=== PATIENT | male | born 1965 | race African-American/Black ===

== ENCOUNTER 2016-10-07 17:37 | Inpatient (IN) | payer OTHER ==
[~2016-10-07] VITALS: Ht 195.6 cm; Wt 164.9 kg
[2016-10-07 17:37] VITALS: BP 162/94; PULSE 68; RESP 15; TEMP 98.9; O2SAT 98
[~2016-10-07 17:37] MED LIST: ARIP5TAB10 PO; ASPI-1063 PO; CINA90TA PO; GABA-531 PO; INSU100V9 SUBCUT; LAMO200T2 PO; LATA2.5D6 OP; LEVE500T13 PO; LOSA50TA3 PO; METO50TA7 PO; POLY17PO2 PO; RANI300T7 PO; SEVE800T10 PO; SIMV20TA2 PO; SSNOVOLOG SUBCUT
--- NOTE | 2016-10-07 17:37 | NUR ---
Patient to ER bed 5 to gown for evaluation. Side rails up. Report given to CLIVE Tony.
--- NOTE | 2016-10-07 17:45 | NUR ---
Patient brought in by ambulance, per medic patient was at home with caregiver and was complaining of unexplained right leg pain (area unknown) and caregiver felt that patient was altered. Patient had 1.5 minute seizure with medics at time of arrival, post seizure patient lethargic, moving eyes around with non comprehensible slurred speech. Pin point pupils noted per medics at at this time. Unable to obtain any further information. No injury/deformites noted. Bilateral lower extremity edema noted. No other complaints/injuries per patient or noted at this time. Addendum: 10/07/16 at 1937 by JOSÉ MIGUEL No deformites/bruising/injury noted to body
--- NOTE | 2016-10-07 17:46 | NUR ---
Dr. Skaggs at bedside
--- NOTE | 2016-10-07 17:48 | NUR ---
Full seizure precautions in place, padded side rails.
--- NOTE | 2016-10-07 17:48 | NUR ---
Patient placed on 02 2L per MD order. 02 sat 100%
[2016-10-07] MEDS ORDERED: LORazepam 2 MG/ML VIAL (FOR ER USE) ONE (17:49)
[2016-10-07] MEDS ORDERED: LORazepam 2 MG/ML VIAL (FOR ER USE) IVP ONE (18:00)
--- NOTE | 2016-10-07 18:00 | NUR ---
Patient's speech is more comprehensible, alert to name. Patient still unable to state why he is here.
--- NOTE | 2016-10-07 18:15 | NUR ---
Eckert catheter with use of sterile technique placed. Immediate return of 50 cc clear yellow urine noted. Bedside drainage bag placed below level of bladder. Urine sample collected and sent to lab. Pt tolerated procedure well.
--- NOTE | 2016-10-07 18:40 | NUR ---
Unable to establish IV access after multiple attempts. US guided 18G IV placed to right brachial vein.
[2016-10-07 18:47] LABS: BASOPHILS # (AUTO) 0.1 K/uL (0.0-0.2); EOSINOPHILS # (AUTO) 0.2 K/uL (0.0-0.4); HEMOGLOBIN 8.9 g/dL (14.0-18.0); MEAN CORPUSCULAR HEMOGLOBIN 34 pg (27-31); MEAN CORPUSCULAR HGB CONC 33 % (32-36); MONOCYTES # (AUTO) 0.7 K/uL (0.0-1.0)
[2016-10-07 18:51] LABS: BASOPHILS % (AUTO) 1.8 % (0.0-2.0); EOSINOPHILS % (AUTO) 3.7 % (0.0-4.0); HEMATOCRIT 27.2 % (36-54); LYMPHOCYTES % (AUTO) 17.2 % (20.5-51.5); MEAN CORPUSCULAR VOLUME 102 fL (79.0-98.0); MONOCYTES % (AUTO) 11.5 % (1.7-9.3); NEUTROPHILS # (AUTO) 3.8 K/uL (1.8-7.7); NEUTROPHILS % (AUTO) 65.8 % (40.0-70.0); PLATELET COUNT (AUTO) 185 K/uL (130-430); RED BLOOD CELL COUNT(AUTO) 2.66 MIL/uL (4.2-6.2); RED CELL DISTRIBUTION WIDTH 15.7 % (9.0-15.0); WHITE BLOOD COUNT (AUTO) 5.8 K/uL (4.8-10.8)
[2016-10-07 18:54] LABS: BILIRUBIN,URINE NEGATIVE (NEGATIVE); BLOOD, URINE 3+ (NEGATIVE); CLARITY/URINE SL CLOUDY (CLEAR); COLOR,URINE YELLOW (YELLOW); GLUCOSE,URINE NEGATIVE (NEGATIVE); KETONES,URINE NEGATIVE (NEGATIVE); LEUKOCYTE ESTERASE ,URINE 1+ (NEGATIVE); NITRITE, URINE NEGATIVE (NEGATIVE); PROTEIN URINE 2+ (NEGATIVE); UROBILINOGEN,URINE 0.2 (0.2-1.0)
[2016-10-07 18:59] LABS: CALCIUM 9.7 mg/dL (8.4-11.0); POTASSIUM 4.7 mmol/L (3.5-5.1)
[2016-10-07 19:05] LABS: CREATININE 11.97 mg/dL (0.55-1.30)
[2016-10-07 19:08] LABS: TOTAL BILIRUBIN 0.6 mg/dL (0.0-1.0)
[2016-10-07 19:09] LABS: TOTAL PROTEIN, SERUM 7.4 g/dL (6.4-8.3)
[2016-10-07 19:09] LABS: BARBITURATE, URINE NEGATIVE (NEG <=200); BENZODIAZEPINE, URINE NEGATIVE (NEG <=150); CANNABINOID, URINE NEGATIVE (NEG <=50); COCAINE, URINE NEGATIVE (NEG <=150); METHAMPHETAMINES SCREEN,URINE NEGATIVE (NEG <=500); OPIATE, URINE POSITIVE (NEG <=100); PHENCYCLIDINE SCREEN,URINE NEGATIVE (NEG <=25); UR TRICYCLIC ANTIDEPRESSANTS NEGATIVE (NEG <=300); URINE AMPHETAMINE NEGATIVE (NEG <=500); URINE METHADONE NEGATIVE (NEG <=200); URINE OXYCODONE SCREEN NEGATIVE (NEG <=100); URINE PROPOXYPHENE SCREEN NEGATIVE (NEG <=300)
[2016-10-07 19:13] LABS: BACTERIA,URINE FEW /HPF (None Seen); RBC,URINE 20-50 /HPF (0-3)
[2016-10-07] MEDS ORDERED: cefTRIAXone 1 GM IVPB PREMIX 50 ML IV ONE (19:45)
[2016-10-07 19:46] LABS: MUCUS,URINE None Seen /LPF (None Seen)
[2016-10-07] MEDS: SEVELAMER HCL 800 MG TABLET PO SCH (21:00)
[2016-10-07] MEDS: GABAPENTIN 300 MG CAPSULE PO SCH (21:00)
[2016-10-07] MEDS: POLYETHYLENE GLYCOL 3350, 17 GM/ POWD.PACK PO SCH (21:00)
[2016-10-07] MEDS: LATANOPROST 2.5 ML DROPS (XALATAN) OP SCH (21:00)
[2016-10-07] MEDS: SIMVASTATIN 20 MG TABLET PO SCH (21:00)
[2016-10-07] MEDS: LamoTRIgine 100 MG TABLET PO SCH (21:00)
[2016-10-07] MEDS: levETIRAcetam 500 MG TABLET PO SCH (21:00)
[2016-10-07] MEDS ORDERED: LORazepam 2 MG/ML VIAL IVP PRN (21:15)
[2016-10-07] MEDS ORDERED: DEXTROSE 50% JECT 50 ML DISP.SYRIN IVP PRN (21:15)
--- NOTE | 2016-10-07 21:35 | NUR ---
ADMISSION NOTE Received patient from ER via gurney. Patient admitted with diagnosis of ALOC, SEIZURE. Patient is awake, alert, oriented X 2. Patient oriented to hospital room, call light, toileting, pain management and safety-teach back done. Patient informed that PHILL will be HIS nurse and that their room number is [131A]. Personal belongings checked and Belongings List documented. Call light within reach.
--- NOTE | 2016-10-07 21:36 | NUR ---
Patient will be admitted to care of Dr. Chakraborty. Admitted to tele unit. Will go to room 131-a. Belongings list completed. Summary report printed. Report given to CLIVE Seaman.
[2016-10-07 21:45] VITALS: BP 165/92; PULSE 63; RESP 18; RESP 20; TEMP 97.4; O2SAT 100
[2016-10-07] MEDS: D5NS 1,000 ML IV SCH (22:00)
[2016-10-07] MEDS: INSULIN REGULAR, HUMAN 100 UNITS/ML, 10 ML VIAL (novoLIN R) SUBCUT PRN (23:43)
--- NOTE | 2016-10-07 23:51 | NUR ---
ACCUCHECK/PAIN Pt.'s blood sugar 173; 2 units of Regular insulin administered per sliding scale order. Pt. c/o "04/20" pain to right leg. Will page to report.
[2016-10-08 01:02] VITALS: BP 169/98; PULSE 60; RESP 18; TEMP 98; O2SAT 96
[2016-10-08 01:29] VITALS: BP 170/99
--- NOTE | 2016-10-08 01:30 | NUR ---
SPOKE TO DR. GUERRA Spoke to Dr. Guerra regarding pt.'s blood pressure of 170/99 (previously 169/98) and that his current diet order is nothing by mouth with c/o "9/10" pain to right leg. Dr. Guerra ordered Morphine 1mg IVP every 4 hours as needed for severe (7-10) pain. Will carry out.
[2016-10-08] MEDS: MORPHINE 2 MG/ML INJ. SYRINGE IVP PRN (02:17)
--- NOTE | 2016-10-08 02:17 | NUR ---
PAIN late entry due to pt. care. Pt. was medicated for pain by Nancy Multani RN. Please see EMAR.
--- NOTE | 2016-10-08 04:00 | NUR ---
ROUNDS Late entry due to pt. care. Pt. is resting quietly in bed with eyes closed. No s/s of acute distress. Safety measures in place. Call light on lap. Bed alarm on. Will continue to monitor.
[2016-10-08 05:12] VITALS: BP 161/86; PULSE 61; RESP 17; TEMP 97.6; O2SAT 98
--- NOTE | 2016-10-08 06:36 | NUR ---
CLOSING NOTES Pt. is resting quietly in bed with no s/s of acute distress. No s/s of seizure activity throughout shift. Safety and seizure measures continued to be in place throughout shift. No significant changes. Will endorse care to oncoming day shift nurse.
--- NOTE | 2016-10-08 07:15 | NUR ---
SEIZURE ACTIVITY Late entry due to pt. care. Pt. had 30 second seizure activity during shift change/report. Day shift nurse and student nurse also at bedside. Endorsed to day shift nurse to report to . Addendum: 10/08/16 at 0750 by Urszula Montalvo RN SEIZURE ACTIVITY Late entry due to pt. care. Pt. had 30 second seizure activity during shift change/report. Pt. pupils are reactive to light. Pt. does not appear to be in any s/s of any other distress. Day shift nurse and student nurse also at bedside. Endorsed to day shift nurse to report to
[2016-10-08 07:59] VITALS: BP 158/96; PULSE 60; RESP 16; TEMP 98; O2SAT 98
--- NOTE | 2016-10-08 08:00 | NUR ---
NOTE PT SITTING UP IN BED. NO SOB/RESP DISTRESS OR PAIN/DISCOMFORT WAS NOTED AT THIS TIME. IV IN JOSÉ MIGUEL INTACT AND PATENT AT THIS TIME. TELE UNIT ATTACHED AND TRANSMITTING WELL. BILL AV SHUNT INTACT WITH BRUIT AND THRILL PRESENT AT THIS TIME. NO NEEDS NOTED. CALL LIGHT WITHIN REACH.
[2016-10-08] MEDS: LamoTRIgine 100 MG TABLET PO SCH ×2 (08:50→21:48)
[2016-10-08] MEDS: ARIPiprazole 5 MG TAB PO SCH (08:50)
[2016-10-08] MEDS: CINACALCET HCL 30 MG TABLET PO SCH (08:50)
[2016-10-08] MEDS: SEVELAMER HCL 800 MG TABLET PO SCH ×3 (08:50→21:48)
[2016-10-08] MEDS: METOPROLOL SUCCINATE 50 MG TAB.SR.24H (TOPROL XL) PO SCH (08:51)
[2016-10-08] MEDS: GABAPENTIN 300 MG CAPSULE PO SCH ×2 (08:51→21:49)
[2016-10-08] MEDS: ASPIRIN 81 MG TABLET(ECOTRIN) PO SCH (08:51)
[2016-10-08] MEDS: LOSARTAN POTASSIUM 50 MG TABLET (COZAAR) PO SCH (08:51)
[2016-10-08] MEDS: levETIRAcetam 500 MG TABLET PO SCH ×2 (08:51→21:49)
--- NOTE | 2016-10-08 08:54 | NUR ---
Consult: for Dr. Rosado, regarding ESRD, ordered by Dr. Chakraborty, spoke with Sloane.
--- NOTE | 2016-10-08 08:55 | NUR ---
Nephro Consult: for Dr. Montejo, regarding ESRD, ordered by Dr. Chakraborty, spoke with Rupal.
--- NOTE | 2016-10-08 09:00 | NUR ---
NOTE DR GUERRA WAS ON THE FLOOR AT 0835AM. ORDERS FOR CLEAR LIQUID DIET AND CONSULTS FOR DR NEVAREZ AND DR PLEITEZ GIVEN. PT NOTIFIED AND UPDATED ON NEW ORDERS. PT WAS ASSISTED IN TAKING PO MEDICATIONS I AT A TIME. TOLERATED CLEAR LIQUIDS DIET WELL AT THIS TIME. CALL LIGHT WITHIN REACH.
--- NOTE | 2016-10-08 09:07 | NUR ---
Nutrition Update Berhane Scale 16 noted. Pt admitted for ALOC. Diet: clear liquid BMI: 41.5 kg/m2 RD to follow per nutrition care standards.
--- NOTE | 2016-10-08 11:00 | NUR ---
NOTE INSIDE SALES PERSON CALLED AND STATED SHE WILL BE IN TO DO DIALYSIS AROUND 1300. CONSENT FOR DIALYSIS SIGNED BY PT AND IN THE CHART AT THIS TIME. PT DROWSY AND SLEEPY AT THIS TIME. NO NEEDS NOTED. CALL LIGHT WITHIN REACH.
[2016-10-08 11:27] VITALS: BP 161/77; PULSE 58; RESP 19; TEMP 97.4; O2SAT 98
--- NOTE | 2016-10-08 12:45 | NUR ---
NOTE PT WAS ASSISTED IN EATING HIS LUNCH TRAY BY SILO MAN AT THIS TIME. NO SOB/RESP DISTRESS OR PAIN/DISCOMFORT NOTED AT THIS TIME. CALL LIGHT WITHIN REACH. NO NEEDS NOTED AT THIS TIME.
[2016-10-08] MEDS: INSULIN REGULAR, HUMAN 100 UNITS/ML, 10 ML VIAL (novoLIN R) SUBCUT PRN (16:47)
[2016-10-08] MEDS: D5NS 1,000 ML IV SCH (16:54)
--- NOTE | 2016-10-08 17:00 | NUR ---
NOTE PT STARTED DIALYSIS AT 1330 AND ENDED AT 1700. PT TOLERATED DIALYSIS WELL. NO NEEDS NOTED AT THIS TIME. CALL LIGHT WITHIN REACH.
--- NOTE | 2016-10-08 18:13 | NUR ---
PAGED PAGED TIFFANY LION AT [phone] SPOKE WITH LUIZ.
[2016-10-08] MEDS ORDERED: *HEPARIN PER PHARMACY XX ONE (18:30)
--- NOTE | 2016-10-08 18:35 | NUR ---
NOTE PT'S COAL OR ORE CONTROLLER VAZQUEZ CALLED AT 1650 AND UPDATE ON PT'S STATUS WAS GIVEN. DR GUERRA WAS NOTIFIED AT 0835AM OF PT'S EPISODE OF SEIZURE AT 0715AM, WITNESSED BY KALYAN RN, PHILL RN(NOC) AND STUDENT RN (DINH). PT RESTING IN BED AT THIS TIME. NO NEEDS NOTED. NO SOB/RESP DISTRESS OR PAIN/DISCOMFORT OR ANY OTHER SEIZURE ACTIVITY NOTED ON REST OF SHIFT. TELE UNIT IN PLACE ALL SHIFT. PT WAS CHECKED ON Q1' AND PRN FOR NEEDS AND CARE. CALL LIGHT WITHIN REACH.
--- NOTE | 2016-10-08 18:43 | NUR ---
NOTE DR GUERRA WAS CALLED AT 1825 WITH RESULTS OF PT'S US VENOUS DOPPLER OF LOWER EXTREMITIES. LEFT LEG WAS (+) FOR DVT. HEPARIN DRIP PER PHARMACY WAS ORDERED AT THIS TIME.
--- NOTE | 2016-10-08 19:35 | NUR ---
OPENING NOTE Pt. and report received from day shift nurse. Pt. is resting quietly in bed with no s/s of acute distress. Respirations are even and unlabored on room air with visible chest rise and fall. IV fluids infusing as ordered. Eckert catheter is intact secured and draining urine by gravity. Plan of care discussed. Safety and seizure measures in place. Educated pt. on safety and how to use call light for needs. Bed alarm on. Will continue to monitor.
--- NOTE | 2016-10-08 19:59 | NUR ---
LAB UNABLE TO OBTAIN PTT LABS/PAGING DR. GUERRA 3 phlebotomists attempted but are unable to obtain pt.'s blood sample for PTT labwork. Evelyn also at nurse's station to report he is unable to dose Heparin drip without pt.'s baseline PTT. Paging Dr. Guerra to report.
[2016-10-08 20:00] VITALS: BP 156/76; PULSE 60; RESP 18; TEMP 97.7; O2SAT 100
--- NOTE | 2016-10-08 20:00 | NUR ---
PAGED PAGED TIFFANY LION AT [phone] SPOKE WITH LUIZ.
--- NOTE | 2016-10-08 20:07 | NUR ---
CONSULTATION PAGED REASON FOR CONSULTATION:CENTRAL LINE PLACEMENT WAS CONSULT CALLED?Y PERSON WHO WAS NOTIFIED:LUIZ CONSULTING PHYSICIAN:VICKY MENG PAD MACHINE FEEDER SPECIALTY:SURGEON PAD MACHINE FEEDER PHONE NUMBER:[phone]
--- NOTE | 2016-10-08 20:14 | NUR ---
DR. QIU MAKING ROUNDS Dr. Qiu is here for neuro consult and saw patient.
--- NOTE | 2016-10-08 20:36 | NUR ---
DR. MCCARTHY Spoke and reported to Dr. Mccarthy he was ordered as a stat consult for central line placement for pt. due to inability to obtain blood sample for PTT for heparin drip to be started tonight for positive DVT result/tx per Dr. Chakraborty. Dr. Mccarthy to see patient tonight and gave orders to prepare central line equipment.
[2016-10-08] MEDS ORDERED: HEPARIN SODIUM,PORCINE 2000 UNITS/0.4 ML BOLUS IVP PRN (20:45)
[2016-10-08] MEDS ORDERED: HEPARIN SODIUM,PORCINE 3000 UNITS/0.6 ML BOLUS IVP PRN (20:45)
--- NOTE | 2016-10-08 20:47 | NUR ---
CENTRAL LINE INFORMED CONSENT Late entry due to pt. care. Dr. Mccarthy at bedside explaining central line procedure with pt. and caregiver Jacob at bedside. Pt. denies any questions or concerns at this time. Form was signed. Placed in chart.
[2016-10-08] MEDS: LATANOPROST 2.5 ML DROPS (XALATAN) OP SCH (21:00)
[2016-10-08] MEDS ORDERED: HEPARIN SODIUM,PORCINE 5000 UNITS/ML VIAL IV ONE (21:00)
[2016-10-08] MEDS ORDERED: HEPARIN SODIUM,PORCINE 5000 UNITS/ML VIAL IVP ONE (21:00)
--- NOTE | 2016-10-08 21:00 | NUR ---
CENTRAL LINE PLACEMENT Late entry due to pt. care. Dr. Mccarthy at bedside doing central line procedure. Time out at 2100. Central line to right femoral with three ports. 5,[address] Mccarthy. Pt. tolerated well. Procedure was complete at 2147pm.
[2016-10-08] MEDS: SIMVASTATIN 20 MG TABLET PO SCH (21:48)
[2016-10-08] MEDS: POLYETHYLENE GLYCOL 3350, 17 GM/ POWD.PACK PO SCH (21:49)
[2016-10-08] MEDS: cefTRIAXone 1 GM IVPB PREMIX 50 ML IV SCH (21:49)
--- NOTE | 2016-10-08 22:30 | NUR ---
DUE MEDS Due meds administered as ordered. Pt. tolerated well. Educated pt. regarding medication and s/e. Caregiver Jacob at bedside who is also aware of pt.'s medications.
[2016-10-08] MEDS: HEPARIN 25,000 UNITS in 250 ML PREMIX IV PRN (22:55)
--- NOTE | 2016-10-08 22:55 | NUR ---
PTT/HEPARIN DRIP Late entry due to pt. care. Pt.'s PTT 29.4; Heparin bolus given and infusing as ordered.
[2016-10-09] VITALS: BP 147/85; PULSE 61; RESP 18; TEMP 97.2; O2SAT 96
[2016-10-09] MEDS: LATANOPROST 2.5 ML DROPS (XALATAN) OP SCH ×2 (01:16→20:57)
--- NOTE | 2016-10-09 01:24 | NUR ---
ACCUCHECK Blood sugar 95; no insulin was administered per sliding scale order. Encouraged pt. to take a snack.
--- NOTE | 2016-10-09 02:00 | NUR ---
ROUNDS Late entry due to pt. care. Pt. is resting quietly in bed with eyes closed. Respirations are even and unlabored with visible chest rise and fall. No s/s of acute distress. Safety measures in place. Call light on lap. Will continue to monitor.
--- NOTE | 2016-10-09 04:38 | NUR ---
ROUNDS CARBURETOR EXPERT at bedside. Pt. is awake, resting quietly in bed with no s/s of acute distress. Safety and seizure measures in place. bed alarm on. Call light on lap. Will continue to monitor.
[2016-10-09] MEDS: MORPHINE 2 MG/ML INJ. SYRINGE IVP PRN ×3 (04:54→20:54)
--- NOTE | 2016-10-09 04:54 | NUR ---
PAIN Late entry due to pt. care. Pt. c/o severe pain to right leg. Pt. medicated with Morphine IVP as ordered PRN for severe pain. See eMAR. Educated pt. regarding med and s/e. Pt. verbalized understanding. Safety and seizure measures in place with no s/s of seizure activity at this time. Will continue to monitor.
[2016-10-09 05:09] VITALS: BP 169/78; PULSE 68; RESP 19; TEMP 98.5; O2SAT 100
--- NOTE | 2016-10-09 05:30 | NUR ---
HEPARIN DRIP Late entry due to pt. care. Lab called who stated pt.'s PTT is 62.1; Heparin infusing per protocol. PTT to be drawn in the morning.
--- NOTE | 2016-10-09 05:39 | NUR ---
BLOOD SUGAR 56, 139
--- NOTE | 2016-10-09 05:40 | NUR ---
CENTRAL LINE DRESSING CHANGE Late entry due to pt. care. Blood noted to central line dressing. Central line dressing was changed with assistance of Angela Poole RN.
--- NOTE | 2016-10-09 05:55 | NUR ---
PAGED PAGED TIFFANY LION AT [phone] SPOKE WITH BENJI.
--- NOTE | 2016-10-09 05:58 | NUR ---
SPOKE TO DR. GUERRA Reported pt.'s blood sugar of [address] Guerra; reported it was rechecked after juice was given and it was 139. Dr. Guerra ordered to administer 1 amp of D50 syringe. Will carry out.
[2016-10-09] MEDS: HEPARIN 25,000 UNITS in 250 ML PREMIX IV PRN ×2 (06:24→15:20)
--- NOTE | 2016-10-09 07:56 | NUR ---
CLOSING NOTES Report given to day shift nurses. Pt. is stable with no s/s of acute distress. Heparin infusing per protocol. PTT to be rechecked in the morning. Safety and seizure measures in place with no s/s seizure activity at this time. Endorsed care to day shift nurses.
[2016-10-09 08:00] VITALS: BP 162/96; PULSE 60; RESP 16; TEMP 97.2; O2SAT 97
--- NOTE | 2016-10-09 08:10 | NUR ---
AM ROUNDS Received patient from life science research assistant nurse, patient is alert and oriented x 3. Patient is stable, vital signs stable, patient does not complain of pain at this moment. No signs of respiratory distress. Patient assessed, skin intact, patient's. Patient is edematous in the bilateral legs non-pitting. Instructed patient to use call wooten if assistance is needed. Also educated patient on fall precaution. Patient's bed is in the lowest position, three side rails up, padded side rails, fall precautions in place, seizure precautions in place. Will continue to check and monitor patient.
[2016-10-09] MEDS: LOSARTAN POTASSIUM 50 MG TABLET (COZAAR) PO SCH (09:20)
--- NOTE | 2016-10-09 09:20 | NUR ---
MEDICATIONS Medications given to patient; educated patient on potential side effects of medication. Patient verbalized understanding. Fall precaution in place, Seizure precaution in place. Will continue to monitor patient.
[2016-10-09] MEDS: LamoTRIgine 100 MG TABLET PO SCH ×2 (09:21→20:59)
[2016-10-09] MEDS: ASPIRIN 81 MG TABLET(ECOTRIN) PO SCH (09:21)
[2016-10-09] MEDS: ARIPiprazole 5 MG TAB PO SCH (09:21)
[2016-10-09] MEDS: levETIRAcetam 500 MG TABLET PO SCH ×2 (09:22→23:25)
[2016-10-09] MEDS: GABAPENTIN 300 MG CAPSULE PO SCH ×2 (09:22→20:59)
[2016-10-09] MEDS: SEVELAMER HCL 800 MG TABLET PO SCH ×3 (09:23→20:59)
[2016-10-09] MEDS: METOPROLOL SUCCINATE 50 MG TAB.SR.24H (TOPROL XL) PO SCH (09:23)
[2016-10-09] MEDS: CINACALCET HCL 30 MG TABLET PO SCH (09:24)
--- NOTE | 2016-10-09 09:30 | NUR ---
RN ROUNDS Patient currently sitting up in bed, no signs of distress, patient currently states he is not in any pain. Informed patient to use call wooten if anything is needed. Patient verbalized understanding. Patient's bed in lowest position, three side rails up, fall precautions in place, seizure precaution in place. Will continue to monitor and check on patient.
--- NOTE | 2016-10-09 11:40 | NUR ---
RN ROUNDS Patient is currently resting in bed, watching TV. No complaints of pain, no signs of distress. Patient's bed is currently in lowest position, three side rails up, fall precautions and seizure precautions in place.
--- NOTE | 2016-10-09 11:44 | NUR ---
CONSULTATION: REASON FOR CONSULT: DVT CONSULTING PHYSICIAN: RAJIV PEÑA MD ORDERED BY: TIFFANY GUERRA MD SPOKE WITH JUANY
[2016-10-09 11:47] VITALS: BP 145/70; PULSE 65; RESP 16; TEMP 97.1; O2SAT 99
[2016-10-09 12:17] LABS: HEPATITIS A AB, IgM Negative (Negative); HEPATITIS B CORE AB, IgM Negative (Negative); HEPATITIS B SURFACE AG Negative (Negative)
--- NOTE | 2016-10-09 14:00 | NUR ---
RN Rounds Patient is currently resting in bed watching TV. No complaints of pain at this time. Tele-monitor box battery changed. Patient's bed is in lowest position, three side rails up, fall precautions in place, Seizure precautions in place. Will continue to monitor patient.
--- NOTE | 2016-10-09 16:30 | NUR ---
RN ROUNDS Patient is currently sleeping; no signs of distress noted. Will continue to monitor patient.
[2016-10-09 16:44] VITALS: BP 138/88; PULSE 59; RESP 18; TEMP 98.8; O2SAT 97
[2016-10-09 18:07] VITALS: Ht 195.6 cm; Wt 164.9 kg
--- NOTE | 2016-10-09 18:30 | NUR ---
CLOSING NOTE Will endorse patient to urologic surgeon nurse. Will endorse to urologic surgeon nurse that patient is requesting for change of diet, if this can be followed up with Primary Doctor. Patient is currently lying down in bed watching tv. No signs of distress, no complaints of pain at this time. Bed in lowest position, three side rails up, fall precautions in place, seizure precautions in place. All need mets
[2016-10-09 19:36] LABS: BASOPHILS % (AUTO) 0.9 % (0.0-2.0); EOSINOPHILS # (AUTO) 0.3 K/uL (0.0-0.4); EOSINOPHILS % (AUTO) 5.1 % (0.0-4.0); HEMATOCRIT 26.1 % (36-54); HEMOGLOBIN 8.6 g/dL (14.0-18.0); LYMPHOCYTES # (AUTO) 1.2 K/uL (1.0-5.5); LYMPHOCYTES % (AUTO) 24.7 % (20.5-51.5); MEAN CORPUSCULAR HEMOGLOBIN 34 pg (27-31); MEAN CORPUSCULAR HGB CONC 33 % (32-36); MEAN CORPUSCULAR VOLUME 103 fL (79.0-98.0); MONOCYTES # (AUTO) 0.6 K/uL (0.0-1.0); MONOCYTES % (AUTO) 11.1 % (1.7-9.3); NEUTROPHILS # (AUTO) 2.9 K/uL (1.8-7.7); NEUTROPHILS % (AUTO) 58.2 % (40.0-70.0); PLATELET COUNT (AUTO) 192 K/uL (130-430); RED BLOOD CELL COUNT(AUTO) 2.55 MIL/uL (4.2-6.2); RED CELL DISTRIBUTION WIDTH 15.6 % (9.0-15.0)
[2016-10-09 20:10] VITALS: BP 158/99; PULSE 60; RESP 20; TEMP 97.8; O2SAT 92
--- NOTE | 2016-10-09 20:10 | NUR ---
OPENING ASSESSMENT PATIENT ALERT/ORIENTED X3. HAS BLEEDING FROM RT. GROIN FEMORAL AREA. AWARE. DAY NURSE APPLIED 0.9NS TO AREA FOR DIRECT PRESSURE. HAS HEPARIN DRIP 15ML/HR. TO RT GROIN. ALL THREE LUMENS ARE PATENT. DRESSING HAS BLOOD ON IT CURRENTLY. ON O2 2L N/C. O2 SAT IS 92%. NO SOB NOTED @ THIS TIME. HAS BILATERAL LOWER EXTREMITIES 4+ EDEMA. CALL LIGHT WITHIN EASY ACCESS. EDUCATED PATIENT TO CALL NURSE FOR ALL NEEDS AND NOT TO GET OUT OF BED. SIDE RAILS UPX3. BED IN LOW POSITION. BED ALARM ON.
--- NOTE | 2016-10-09 20:55 | NUR ---
PAIN ASSESSMENT MORPHINE 1MG IVP FOR C/O RT. GROIN PAIN 04/20.
[2016-10-09] MEDS: cefTRIAXone 1 GM IVPB PREMIX 50 ML IV SCH (20:57)
[2016-10-09] MEDS: POLYETHYLENE GLYCOL 3350, 17 GM/ POWD.PACK PO SCH (20:58)
[2016-10-09] MEDS: SIMVASTATIN 20 MG TABLET PO SCH (20:59)
--- NOTE | 2016-10-09 22:15 | NUR ---
ROUNDS PATIENT ASLEEP. RESPIRATORY RATE IS 16. CONTINUES ON O2 2L N/C. NO DISTRESS NOTED @ THIS TIME.
--- NOTE | 2016-10-09 22:30 | NUR ---
DR.SINGH JOHNSON. AWARE [facility] 1924 HGB-8.6 AND HCT-26.3.
[2016-10-09] MEDS: INSULIN REGULAR, HUMAN 100 UNITS/ML, 10 ML VIAL (novoLIN R) SUBCUT PRN (23:45)
--- NOTE | 2016-10-10 00:10 | NUR ---
NOTES PATIENT RESTING QUIETLY WITHOUT DISTRESS @ THIS TIME.
[2016-10-10 00:41] VITALS: BP 152/81; PULSE 56; RESP 16; TEMP 98.4; O2SAT 97
[2016-10-10] MEDS: MORPHINE 2 MG/ML INJ. SYRINGE IVP PRN ×3 (03:12→21:22)
[2016-10-10 04:48] VITALS: BP 148/86; PULSE 62; RESP 17; TEMP 98.2; O2SAT 98
--- NOTE | 2016-10-10 06:10 | NUR ---
SEIZURE SEIZURE LASTING APPROXIMATELY 4 MINUTES. TONIC CLONIC. ATIVAN 1MG IVP GIVEN. TEMP. 97. HR 100. OB=768/81, RESPIRATION 18.
[2016-10-10] MEDS: LORazepam 2 MG/ML VIAL IVP PRN (06:15)
--- NOTE | 2016-10-10 06:15 | NUR ---
NOTE PT. AWAKE DROWSY. TALKING. NO DISTRESS NOTED @ THIS TIME.
--- NOTE | 2016-10-10 06:30 | NUR ---
DR. RIVAS NOTIFIED PATIENT HAD 4 MINUTE SEIZURE. VERBALIZING NOW. DROWSY. POST SEIZURE. ORDERED DR. THAYER NEUROLOGY CONSULT.
--- NOTE | 2016-10-10 06:35 | NUR ---
CLOSING NOTES PT. DROWSY. RT. THIGH FEMORAL CENTRAL LINE DRESSING CHANGED. HAS HEPARIN DRIP 15ML/HR. ON O2 2L N/C. CONTINUES WITH EDEMA RT. LOWER EXTREMITY GREATER THAN LEFT. EDUCATED PATIENT TO CALL NURSE FOR ALL NEEDS.CALL LIGHT WITHIN EASY ACCESS. SEIZURE PADS ON.
--- NOTE | 2016-10-10 07:07 | NUR ---
Neuro consult: for Dr. Agudelo, regarding seizure, ordered by Dr. Galeas, spoke with Catie.
--- NOTE | 2016-10-10 07:30 | NUR ---
AM ROUNDS: REPORT GIVEN AT BEDSIDE BY JESSI NIGHT NURSE. PATIENT SLEEPING. ON PADDED SIDE RAILS NOTED.WITH HEPARIN DRIP RUNNING AT 15CC/H PER PROTOCOL. WAITING FOR PTT RESULTS,STILL PENDING.WITH FEMORAL CENTRAL LINE X3 PORTS,IN PLACED.NO ACTIVE BLEEDING NOTED. ON O2 2L/NC,GOOD SATURATION. WITH VALENCIA DRAINING TO YELLOW URINE. PT AROUSABLE,IV ATIVAN WAS JUST GIVEN BY NIGHT NURSE DUE TO SEIZURE EPISODE.CALM THIS TIME. CALL LIGHT WITH IN REACH. BED ALARM ON.CONTINUE TO MONITOR.
[2016-10-10 07:52] LABS: BASOPHILS % (AUTO) 0.9 % (0.0-2.0); EOSINOPHILS # (AUTO) 0.3 K/uL (0.0-0.4); EOSINOPHILS % (AUTO) 6.2 % (0.0-4.0); HEMATOCRIT 27.1 % (36-54); HEMOGLOBIN 8.9 g/dL (14.0-18.0); LYMPHOCYTES # (AUTO) 1.3 K/uL (1.0-5.5); LYMPHOCYTES % (AUTO) 30.4 % (20.5-51.5); MEAN CORPUSCULAR HEMOGLOBIN 34 pg (27-31); MEAN CORPUSCULAR HGB CONC 33 % (32-36); MEAN CORPUSCULAR VOLUME 104 fL (79.0-98.0); MONOCYTES # (AUTO) 0.6 K/uL (0.0-1.0); MONOCYTES % (AUTO) 13.7 % (1.7-9.3); NEUTROPHILS # (AUTO) 2.1 K/uL (1.8-7.7); NEUTROPHILS % (AUTO) 48.8 % (40.0-70.0); PLATELET COUNT (AUTO) 186 K/uL (130-430); RED CELL DISTRIBUTION WIDTH 15.5 % (9.0-15.0); WHITE BLOOD COUNT (AUTO) 4.3 K/uL (4.8-10.8)
[2016-10-10 08:28] LABS: CALCIUM 9.4 mg/dL (8.4-11.0); POTASSIUM 4.4 mmol/L (3.5-5.1)
[2016-10-10 08:51] LABS: CREATININE 11.65 mg/dL (0.55-1.30)
[2016-10-10 09:13] VITALS: BP 156/93; PULSE 60; RESP 18; TEMP 97.1; O2SAT 98
[2016-10-10] MEDS: LamoTRIgine 100 MG TABLET PO SCH ×2 (09:25→21:07)
[2016-10-10] MEDS: ASPIRIN 81 MG TABLET(ECOTRIN) PO SCH (09:25)
[2016-10-10] MEDS: GABAPENTIN 300 MG CAPSULE PO SCH ×2 (09:25→21:07)
[2016-10-10] MEDS: levETIRAcetam 500 MG TABLET PO SCH ×2 (09:25→21:08)
[2016-10-10] MEDS: ARIPiprazole 5 MG TAB PO SCH (09:26)
[2016-10-10] MEDS: CINACALCET HCL 30 MG TABLET PO SCH (09:26)
[2016-10-10] MEDS: SEVELAMER HCL 800 MG TABLET PO SCH ×3 (09:26→21:09)
--- NOTE | 2016-10-10 09:30 | NUR ---
rounds: resting. stable.
--- NOTE | 2016-10-10 10:00 | NUR ---
heparin drip: increased rate to 100units/hour per hospital protocol,for ptt=42.6.
[2016-10-10] MEDS: HEPARIN 25,000 UNITS in 250 ML PREMIX IV PRN (10:11)
[2016-10-10] MEDS: INSULIN REGULAR, HUMAN 100 UNITS/ML, 10 ML VIAL (novoLIN R) SUBCUT PRN ×2 (12:10→23:25)
[2016-10-10 12:30] VITALS: PULSE 86; RESP 19; TEMP 97.8; O2SAT 100
--- NOTE | 2016-10-10 12:40 | NUR ---
nephro paged: spoke with dr waddell with orders for hemodialysis today and dialysis nurse to call for orders.
--- NOTE | 2016-10-10 14:28 | NUR ---
radiology: to radiology per whitney.
--- NOTE | 2016-10-10 15:30 | NUR ---
transfer care: report given to ry ,patient just got back from radiology in stable condition.
--- NOTE | 2016-10-10 16:00 | NUR ---
assumed care: pt on bed awake, alert and oriented. i.v. access patent. report received at bedside. plan of care discussed. call light within reach.
[2016-10-10 16:36] VITALS: BP 157/88; PULSE 56; RESP 19; TEMP 98.4; O2SAT 100
--- NOTE | 2016-10-10 17:00 | NUR ---
Dialysis: Started dialysis.
--- NOTE | 2016-10-10 17:31 | NUR ---
blood sugar test: accu check done 158mg/dl. withheld insulin since patient on dialysis and did not eat dinner.
--- NOTE | 2016-10-10 18:18 | NUR ---
Heparin: adjusted heparin 100 units per protocol.
--- NOTE | 2016-10-10 19:15 | NUR ---
closing notes: pt on bed, dialysis still on going. stable. report given at bedside.
[2016-10-10 20:00] VITALS: BP 148/93; PULSE 64; RESP 18; TEMP 98.2; O2SAT 99
--- NOTE | 2016-10-10 20:00 | NUR ---
ROUNDS PATIENT AWAKE, VITALS STABLE, NO PAIN AT THIS TIME. ASSESSMENT DONE AND DOCUMENTED. ON HEPARIN DRIP AT 15ML/HR, TOLERATED WELL. AV SHUNT DIALYSIS ACCESS TO THE LEFT FOREARM, DRESSING CLEAN, DRY AND INTACT. NEEDS ATTENDED TO. CALL LIGHT PLACED WITH PATIENT.
--- NOTE | 2016-10-10 21:00 | NUR ---
MEDICATION DUE MEDICATIONS GIVEN ORDERED, TOLERATED WELL. WILL CONTINUE TO MONITOR.
[2016-10-10] MEDS: POLYETHYLENE GLYCOL 3350, 17 GM/ POWD.PACK PO SCH (21:06)
[2016-10-10] MEDS: LATANOPROST 2.5 ML DROPS (XALATAN) OP SCH (21:07)
[2016-10-10] MEDS: SIMVASTATIN 20 MG TABLET PO SCH (21:08)
[2016-10-10] MEDS: cefTRIAXone 1 GM IVPB PREMIX 50 ML IV SCH (21:09)
--- NOTE | 2016-10-11 00:10 | NUR ---
NOTES CALLED LAB AND SPOKE TO LEANDRO, REMINDING OF PATIENT'S DUE APTT. WILL CONTINUE TO MONITOR.
[2016-10-11 00:35] VITALS: BP 132/80; PULSE 64; RESP 20; TEMP 99.2; O2SAT 99
[2016-10-11] MEDS: MORPHINE 2 MG/ML INJ. SYRINGE IVP PRN ×5 (02:00→23:28)
--- NOTE | 2016-10-11 02:00 | NUR ---
PATIENT RESTING: Patient resting quietly. No acute distress noted. Vital signs within normal range.
--- NOTE | 2016-10-11 03:30 | NUR ---
paged for Dr Chakraborty, dialed . s/w Dianelys, stated that Dr Galeas is on-call for Dr Chakraborty. paged for Dr Galeas, dialed . s/w Jairon.
--- NOTE | 2016-10-11 04:00 | NUR ---
PATIENT RESTING: Patient resting quietly. No acute distress noted. Vital signs within normal range.
[2016-10-11] MEDS: HEPARIN 25,000 UNITS/D5W 250ML 250 ML IV PRN ×2 (04:03→11:56)
[2016-10-11 04:12] VITALS: BP 140/70; PULSE 62; RESP 20; TEMP 97.8; O2SAT 100
[2016-10-11] MEDS: INSULIN REGULAR, HUMAN 100 UNITS/ML, 10 ML VIAL (novoLIN R) SUBCUT PRN ×2 (06:15→23:37)
--- NOTE | 2016-10-11 06:50 | NUR ---
CLOSING NOTES PATIENT AWAKE, VITALS STABLE, ALL NEEDS ATTENDED TO. SAFETY AND FALL PRECAUTION MEASURES MAINTAINED. CALL LIGHT PLACED WITH PATIENT.
--- NOTE | 2016-10-11 08:00 | NUR ---
AM INITIAL NOTES PT AAOX3 WITH COMPLAINTS OF LEG PAIN. NO SOB, DIFFICULTY BREATHING OR DISTRESS NOTED. WIRE WRAPPER MACHINE OPERATOR IN PLACE. O2 VIA NASAL CANULA IS OFF. LEFT UPPER ARM AV SHUNT WITH BRUIT AND THRILL PRESENT. RIGHT FEMORAL CENTRAL LINE WITH DRESSING APPEARS DRY, CLEAN AND INTACT. VALENCIA CATHETER IN PLACE. FALL AND SAFETY PRECAUTIONS ENFORCED. REPOSITIONED AND KEPT COMFORTABLE. PT ON LOW AIRLOSS MATTRESS. BILATERAL LOWER EXTREMITIES APPEAR EDEMATOUS. ENCOURAGED TO CALL FOR ASSISTANCE. CALL LIGHT WITHIN REACH. WILL MONITOR.
[2016-10-11 08:30] VITALS: BP 134/85; PULSE 63; RESP 18; TEMP 98; O2SAT 100
--- NOTE | 2016-10-11 10:00 | NUR ---
ROUNDS PT SOUND ASLEEP. JUST MEDICATED WITH MORPHINE FOR PAIN. NO DISTRESS NOTED. WILL MONITOR.
[2016-10-11] MEDS: ARIPiprazole 5 MG TAB PO SCH (10:21)
[2016-10-11] MEDS: LOSARTAN POTASSIUM 50 MG TABLET (COZAAR) PO SCH (10:21)
[2016-10-11] MEDS: ASPIRIN 81 MG TABLET(ECOTRIN) PO SCH (10:22)
[2016-10-11] MEDS: GABAPENTIN 300 MG CAPSULE PO SCH ×2 (10:22→22:27)
[2016-10-11] MEDS: levETIRAcetam 500 MG TABLET PO SCH ×2 (10:22→22:28)
[2016-10-11] MEDS: LamoTRIgine 100 MG TABLET PO SCH ×2 (10:22→22:27)
[2016-10-11] MEDS: CINACALCET HCL 30 MG TABLET PO SCH (10:22)
[2016-10-11] MEDS: METOPROLOL SUCCINATE 50 MG TAB.SR.24H (TOPROL XL) PO SCH (10:23)
[2016-10-11] MEDS: SEVELAMER HCL 800 MG TABLET PO SCH ×3 (10:25→22:28)
--- NOTE | 2016-10-11 10:51 | NUR ---
Heparin: lab result for PTT needs to increased 100units heparin per protocol.
[2016-10-11 11:36] VITALS: BP 131/75; PULSE 59; RESP 19; TEMP 97.5; O2SAT 100
--- NOTE | 2016-10-11 12:00 | NUR ---
ROUNDS PT AWAKE EATING LUNCH. BLOOD SUGAR MONITOR 142. NO COMPLAINTS OF PAIN OR DISCOMFORT AT THIS TIME. NO DISTRESS NOTED. ENCOURAGED TO CALL FOR ASSISTANCE. WILL MONITOR.
--- NOTE | 2016-10-11 14:00 | NUR ---
ROUNDS PT ASLEEP. NO SIGNIFICANT CHANGES NOTED. CALL LIGHT WITHIN REACH. WILL MONITOR.
--- NOTE | 2016-10-11 14:24 | NUR ---
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 168% of IBW. Adj IBW (obesity): 244 lb, 111 kg Estimated Needs (modified) 5186-7045 kcal/day (BEE x 1-1.2 CBW for CKD) Grams of Protein per Day (modified) 114-133 gm/day (1.2-1.4 gm/kg IBW for CKD on HD) Fluid Intake Goal Per MD for ESRD Pertinent Labs 10/10/16: WBC 4.3 L, H/H 8.9 L/27.1 L, BUN 36 H, CRE 11.65 H, eGFR 6 L, BG 143 H Other Subjective Data Pt sleeping at time of visit. Once awakened, pt appeared lethargic and was unable to fully participate in verbal interview. Per RN, pt has been eating well and tolerating diet. Reported no planned procedures today (had dialysis yesterday), reported 0 BMs so far today. Per EMR, average PO intake is 80% x 5 meals. Berhane scale: 15; per RN notes, R arm: skin tear. I/Os (10/11/16): 800/0 (+800 ml), 0 BMs recorded since 10/09/16 (noted pt is on miralax). Current diet is appropriate, however, pt may not yet be meeting optimal nutritional needs. Recommend oral supplement Novasource Renal daily to provide additional 475 kcal and 21.6 gm protein per day. Pt is not appropriate for nutrition education. Problem, Etiology, Signs/Symptoms (modified) Inadequate nutritional intakes related to maintenance as evidenced by estimated nutritional requirements. *resolving Altered nutrition-related lab values related to kidney and endocrine dysfunction as evidenced by abnormal BUN, CRE, GFR and BG lab values. Expected Outcomes or Goals - Monitor advancement of diet, appetite, and PO intakes w/ goal of pt meeting at least 75% of estimated nutritional needs, labs trending WNL, normal GI function, and skin integrity/wt maintenance Dietitian Recommendations * Continue CCHO diet per MD * Recommend oral supplement Novasource Renal daily Follow Up Mod Risk: F/U in 3-5 days
[2016-10-11 15:48] VITALS: BP 135/75; PULSE 57; RESP 19; TEMP 97.6; O2SAT 100
--- NOTE | 2016-10-11 16:00 | NUR ---
PAIN PT COMPLAINTS OF LEG PAIN 03/20. NO DISTRESS NOTED. REPOSITIONED AND KEPT COMFORTABLE. INFORMED RN FOR MEDICATION ADMINISTRATION. WILL MONITOR.
[2016-10-11] MEDS ORDERED: EPOETIN ALFA 20,000 UNITS/ML VIAL SUBCUT ONE (17:00)
--- NOTE | 2016-10-11 18:30 | NUR ---
CLOSING NOTES PT AWAKE EATING DINNER. NO COMPLAINTS OF PAIN OR DISCOMFORT. NO DISTRESS NOTED. KEPT COMFORTABLE. WILL ENDORSE CARE TO INCOMING NURSE.
[2016-10-11 19:40] VITALS: BP 130/78; PULSE 60; RESP 16; TEMP 98.2; O2SAT 100
--- NOTE | 2016-10-11 19:40 | NUR ---
Initial note pt. received aaox3, no s/s of sob or distress noted at this time. pt. denies any pain. responds well, and is cooperative, but is slow to speak. will give extra time to respond and communicate. VSS, O2 at 100% on 2L NC. Central line noted to right femoral, saline lock. dressing is dry and intact, no signs of redness or swelling at the site. left upper arm shunt present for hemodialysis access. lower extremities are dry, with bilateral non pitting edema. left foot has an old cut with dry blood, right upper arm has a small guaze dressing for a scratch, dressing is dry and intact with no active bleeding noted. pt. is on air mattress and seizure pads are on both side rails. plan of care discussed with pt, verbalizes understanding. will continue to monitor for any changes. safety, fall and seizure precautions in place. call light in reach, bed in lowest position, bed alarm on. hourly rounding to be done this shift.
--- NOTE | 2016-10-11 20:00 | NUR ---
RN note pt. refused to be turned, states he is comfortable as is. explained to the pt. the importance of repositioning in bed every two hours to prevent skin breakdown, verbalizes understanding, but continues to refuse. Nivia HOPPER and myself will ask him again at a later time if he would like to be turned and repositioned.
[2016-10-11] MEDS: POLYETHYLENE GLYCOL 3350, 17 GM/ POWD.PACK PO SCH (21:00)
--- NOTE | 2016-10-11 22:04 | NUR ---
rounds pt. resting in bed. no s/s of sob or distress noted at this time. provided pt. with a snack upon request, turkey sandwich and grahm crackers. will continue to monitor the pt. for any changes. safety, fall and seizure precautions in place, call light in reach, bed alarm on.
[2016-10-11] MEDS: LATANOPROST 2.5 ML DROPS (XALATAN) OP SCH (22:27)
[2016-10-11] MEDS: cefTRIAXone 1 GM IVPB PREMIX 50 ML IV SCH (22:27)
[2016-10-11] MEDS: SIMVASTATIN 20 MG TABLET PO SCH (22:28)
[2016-10-11] MEDS: HEPARIN SODIUM,PORCINE 5000 UNITS/ML VIAL SUBCUT SCH (22:31)
--- NOTE | 2016-10-11 23:46 | NUR ---
hygiene offered hygiene pt refused . notified rn as well. also pt says he is comfortable on his back does not want to be turned Addendum: 10/11/16 at 2347 by Nivia Real CNA Amended: Links added.
--- NOTE | 2016-10-12 00:03 | NUR ---
rounds pt. resting in bed with eyes closed. no s/s of sob or distress noted. pt. denies pain at this time. does not wish to be turned or repositioned. will continue to monitor the pt. for any changes. safety, fall and seizure precautions in place. call light in reach,bed in lowest position with alarm on.
[2016-10-12 00:30] VITALS: BP 144/87; PULSE 65; RESP 18; TEMP 98.2; O2SAT 97
--- NOTE | 2016-10-12 02:01 | NUR ---
rounds pt. resting in bed with eyes closed. no s/s of sob or distress noted at this time. pt. does not wish to be turned or repositioned. will continue to monitor the pt. for any changes. safety, fall,and seizure precautions in place. call light in reach, bed alarm on.
--- NOTE | 2016-10-12 04:01 | NUR ---
rounds pt. resting in bed with eyes closed. chest rise and fall noted. no s/s of sob or distress. no facial grimacing indicating pain. will continue to monitor for any changes. safety, fall and seizure precautions in place. call light in reach, bed alarm on.
[2016-10-12 04:38] VITALS: BP 138/88; PULSE 68; RESP 18; TEMP 98.6; O2SAT 98
[2016-10-12] MEDS: LORazepam 2 MG/ML VIAL IVP PRN ×2 (05:06→15:49)
--- NOTE | 2016-10-12 05:09 | NUR ---
SEIZURE WAS IN THE ROOM WITH PT. ASSISTING HIM WITH AM HYGIENE, PT. WAS ENGAGED IN CONVERSATION WHEN SUDDENLY AT 0454 PT. STOPPED RESPONDING, WHEN CALLING HIS NAME HE DID NOT RESPOND OR MAKE EYE CONTACT, 02 WAS APPLIED, HEAD OF BED WAS LOWERED,PT. WAS STARING INTO SPACE HAVING AN ABSENT SEIZURE. NATHAN VELAZQUEZ HEIDI CNA, LARRY, RN PRESENT. VITALS TAKEN, BP 144/85, HR 58, 02 100%. AT 0456, ABSENT SEIZURE TURNED INTO TONIC CLONIC SEIZURE, THIS LASTED ABOUT THREE MINUTES, UNTIL 0459. PT. O2 REMAINED AT 100% DURATION OF SEIZURE. THE ENTIRE SEIZURE LASTED APPROX 5 MINS, FROM [id number]. PT. POST ICTAL STATE IS CONFUSED, AND LETHARGIC PT. STATES WHERE AM I. 1MG ATIVAN GIVEN ORDERED FOR PRN SEIZURES. WILL CONTINUE TO MONITOR FOR ANY CHANGES. SEIZURE PRECAUTIONS REMAIN IN PLACE, WITH PADDED SIDE RAILS AND BED ALARM IS ON. PT. NOW RESTING WITH EYES CLOSED. CHEST RISE AND FALL NOTED.
--- NOTE | 2016-10-12 05:24 | NUR ---
HYGIENE WHILE CLEANING PT , PT HAD A SEIZURE WAS NOT ABLE TO CHANGE BOTTOM LINEN. BLANKETS AND GOWN WAS CHANGED Addendum: 10/12/16 at 0525 by Nivia Real CNA Amended: Links added.
--- NOTE | 2016-10-12 06:38 | NUR ---
closing notes pt. resting in bed with eyes closed, arouses easily, but still very lethargic and confused following seizure this morning. blood sugar was 146 and no coverage was needed. all necessary needs were met this shift. safety, fall and seizure precautions maintained. will endorse care to am nurse. call light in reach, bed alarm on.
[2016-10-12 07:58] VITALS: BP 135/78; PULSE 57; RESP 19; TEMP 97.4; O2SAT 100
--- NOTE | 2016-10-12 08:00 | NUR ---
AM NOTES: Received patient alert, slightly lethargic, ativan was administered earlier by shift supervisor film processing nurse. no s/s of distress. lung sound diminished, on 02@2l/nc saturation good. central line at right groin triple lumen with good blood return. florence catheter draining well via gravity yellow output. dolly LE edema +2 elevated with pillow. lying supine. vital sign stable, afebrile. call light within reach. will monitor.
[2016-10-12] MEDS: LamoTRIgine 100 MG TABLET PO SCH ×2 (08:42→20:57)
[2016-10-12] MEDS: ASPIRIN 81 MG TABLET(ECOTRIN) PO SCH (08:42)
[2016-10-12] MEDS: levETIRAcetam 500 MG TABLET PO SCH ×2 (08:42→20:57)
[2016-10-12] MEDS: LOSARTAN POTASSIUM 50 MG TABLET (COZAAR) PO SCH (08:55)
[2016-10-12] MEDS: CINACALCET HCL 30 MG TABLET PO SCH (08:55)
[2016-10-12] MEDS: ARIPiprazole 5 MG TAB PO SCH (08:55)
[2016-10-12] MEDS: GABAPENTIN 300 MG CAPSULE PO SCH ×2 (08:55→20:57)
[2016-10-12] MEDS: SEVELAMER HCL 800 MG TABLET PO SCH ×3 (08:55→20:57)
[2016-10-12] MEDS: METOPROLOL SUCCINATE 50 MG TAB.SR.24H (TOPROL XL) PO SCH (08:56)
[2016-10-12] MEDS: MORPHINE 2 MG/ML INJ. SYRINGE IVP PRN ×2 (09:06→14:12)
[2016-10-12] MEDS: HEPARIN SODIUM,PORCINE 5000 UNITS/ML VIAL SUBCUT SCH ×2 (09:06→21:01)
--- NOTE | 2016-10-12 09:10 | NUR ---
morning medication scheduled administered. no swallowing problem noted.
--- NOTE | 2016-10-12 10:00 | NUR ---
warehouser stated dialysis company assign is aware.
[2016-10-12 10:57] LABS: BASOPHILS % (AUTO) 0.8 % (0.0-2.0); EOSINOPHILS # (AUTO) 0.4 K/uL (0.0-0.4); EOSINOPHILS % (AUTO) 7.4 % (0.0-4.0); HEMATOCRIT 24.4 % (36-54); HEMOGLOBIN 8.2 g/dL (14.0-18.0); LYMPHOCYTES # (AUTO) 0.8 K/uL (1.0-5.5); LYMPHOCYTES % (AUTO) 16.7 % (20.5-51.5); MEAN CORPUSCULAR HEMOGLOBIN 34 pg (27-31); MEAN CORPUSCULAR HGB CONC 34 % (32-36); MEAN CORPUSCULAR VOLUME 101 fL (79.0-98.0); MONOCYTES # (AUTO) 0.5 K/uL (0.0-1.0); MONOCYTES % (AUTO) 11.1 % (1.7-9.3); NEUTROPHILS # (AUTO) 3.2 K/uL (1.8-7.7); PLATELET COUNT (AUTO) 182 K/uL (130-430); RED BLOOD CELL COUNT(AUTO) 2.41 MIL/uL (4.2-6.2); RED CELL DISTRIBUTION WIDTH 14.9 % (9.0-15.0); WHITE BLOOD COUNT (AUTO) 4.9 K/uL (4.8-10.8)
[2016-10-12 11:02] LABS: CALCIUM 9.3 mg/dL (8.4-11.0); POTASSIUM 4.8 mmol/L (3.5-5.1)
[2016-10-12 11:05] LABS: PROTHROMBIN TIME 11.1 SECS (9.5-12.5)
[2016-10-12 11:12] LABS: CREATININE 11.83 mg/dL (0.55-1.30)
[2016-10-12 11:50] VITALS: BP 141/75; PULSE 57; RESP 19; TEMP 97.4; O2SAT 100
[2016-10-12] MEDS: INSULIN REGULAR, HUMAN 100 UNITS/ML, 10 ML VIAL (novoLIN R) SUBCUT PRN ×2 (12:14→17:15)
--- NOTE | 2016-10-12 14:12 | NUR ---
PAIN: Patient reports pain to generalized, mostly LE. Rates pain 7-8/10.aching, medicated morphine 1 mg ivp. informed about the action and possible side effects. pt verbalized i understand. will monitor.
--- NOTE | 2016-10-12 15:07 | NUR ---
PATIENT RESTING: Patient resting quietly. No acute distress noted. Vital signs within normal range.
[2016-10-12 15:43] VITALS: BP 139/79; PULSE 56; RESP 19; TEMP 97.2; O2SAT 99
--- NOTE | 2016-10-12 15:50 | NUR ---
patient has seizure activity, tonic -clonic for 2 mins. saturation 100%. on 02@2l/nc, vital sign post seizure 154/85, pulse 58, saturation 100%.able to state names. sz pad placed. will monitor.
[2016-10-12] MEDS: WARFARIN SODIUM 5 MG TABLET PO SCH (17:08)
--- NOTE | 2016-10-12 17:28 | NUR ---
notes: after 1 episode of seizure,no more episode noted. patient alert, awake, oriented, watching tv . refused to reposition. Eckert catheter emptied 200ml output.vital sign stable, afebrile. seizure precaution maintained.all needs mets. will endorsed to incoming nurse.
[2016-10-12 19:50] VITALS: BP 137/81; PULSE 54; RESP 16; TEMP 97.2; O2SAT 98
--- NOTE | 2016-10-12 19:50 | NUR ---
Initial note pt. received drowsy and lethargic, but is able to follow commands. AM nurse states she gave ordered dose of PRN Ativan following seizure activity. no s/s of sob or distress noted at this time. no facial grimacing or complaints of any pain at this time. VSS, O2 at 98% on room air. Central line noted to right femoral, saline lock. dressing is dry and intact, no signs of redness or swelling at the site, good blood return present, flushes well. left upper arm shunt present for hemodialysis access. pt. is to receive scheduled hemodialysis treatment today, however dialysis nurse has not been here yet. house fellow made aware and states she will contact. lower extremities are dry, with bilateral non pitting edema. left foot has an old cut with dry blood, right upper arm has a small gauze dressing for a scratch, dressing is dry and intact with no active bleeding noted. pt. is on air mattress and seizure pads are on the side rails. not able to discuss the plan of care with the patient at this time due to drowsy state, but will follow up at a later time. will continue to monitor for any changes. safety, fall, and seizure precautions in place. call light in reach, alarm on. Addendum: 10/12/16 at 2030 by Alessandra Roberts RN florence catheter present, draining yellow urine to gravity.
[2016-10-12] MEDS: cefTRIAXone 1 GM IVPB PREMIX 50 ML IV SCH (20:56)
[2016-10-12] MEDS: SIMVASTATIN 20 MG TABLET PO SCH (20:57)
[2016-10-12] MEDS: POLYETHYLENE GLYCOL 3350, 17 GM/ POWD.PACK PO SCH (20:58)
[2016-10-12] MEDS: LATANOPROST 2.5 ML DROPS (XALATAN) OP SCH (21:00)
--- NOTE | 2016-10-12 21:00 | NUR ---
rn notes notified charge nurse Rashid that xalantan eye drops were not in the med room or at the pt. bedside. said he would inquire regarding the situation.
--- NOTE | 2016-10-12 21:20 | NUR ---
Dialysis Dialysis nurse at the bedside.
--- NOTE | 2016-10-12 22:04 | NUR ---
ROUNDS DIALYSIS NURSE AT THE BEDSIDE WITH THE PT. NO S/S OF DISTRESS OR SOB. PT. IS MORE AWAKE, AND ALERT. WILL CONTINUE TO MONITOR FOR ANY CHANGES. SAFETY, FALL AND SEIZURE PRECAUTIONS IN PLACE. CALL LIGHT IN REACH.
--- NOTE | 2016-10-13 00:53 | NUR ---
RN notes dialysis is finished, 4600 ml out, BP 118/77. pt. doing well. no s/s of sob or distress. pt. having mild pain, will medicate as ordered. will continue to monitor. safety, fall and seizure precautions in place. call light in reach.
[2016-10-13] MEDS: MORPHINE 2 MG/ML INJ. SYRINGE IVP PRN ×4 (01:05→20:14)
[2016-10-13] MEDS: INSULIN REGULAR, HUMAN 100 UNITS/ML, 10 ML VIAL (novoLIN R) SUBCUT PRN ×4 (01:14→23:55)
[2016-10-13 01:26] VITALS: BP 137/77; PULSE 68; RESP 18; TEMP 98; O2SAT 97
--- NOTE | 2016-10-13 02:55 | NUR ---
rounds pt. resting in bed with eyes closed. chest rise and fall noted. no s/s of sob or distress. no facial grimacing indicating pain. will continue to monitor. safety,fall, and seizure precautions in place. call light in reach.
--- NOTE | 2016-10-13 04:20 | NUR ---
rounds pt. resting in bed with eyes closed. chest rise and fall noted. no s/s of distress, no facial grimacing indicating any pain. will continue to monitor for any changes. safety, fall and seizure precautions in place. call light in reach, bed alarm on.
[2016-10-13 04:51] VITALS: BP 131/86; PULSE 70; RESP 20; TEMP 98.2; O2SAT 97
--- NOTE | 2016-10-13 05:29 | NUR ---
RN NOTES PT REFUSED AM BLOOD DRAW. STATED HE DID NOT WANT TO BE POKED. MD ORDERS STATE IT IS OKAY TO DRAW BLOOD FROM CENTRAL LINE, THE LINE FLUSHED WELL, HOWEVER THERE WAS NO BLOOD RETURN THIS AM. PT. DID NOT WANT TO MOVE LEG TO ATTEMPT TO PROMOTE BLOOD RETURN.
--- NOTE | 2016-10-13 06:01 | NUR ---
RN NOTES rooming house operator assisted me in repositioning pt., following reposition, blood return was present again from central line. able to obtain sample to send to the lab.
--- NOTE | 2016-10-13 06:34 | NUR ---
CLOSING NOTE PT. RESTING IN BED WATCHING TELEVISION. NO S/S OF SOB OR DISTRESS NOTED. PT. STATES HE IS IN PAIN, BUT IS NOT DUE FOR PAIN MEDICATION YET. WILL ENCOURAGE RELAXATION TECHNIQUES AND DEEP BREATHING. PT. REFUSED TO DO MOST OF HIS Q2 TURNS THIS SHIFT. EDUCATED THE PT. ON THE IMPORTANCE OF TURNING TO PREVENT SKIN BREAK DOWN, STILL REFUSED. PT. DID NOT EXPERIENCE SEIZURE ACTIVITY THIS SHIFT. 2 UNITS INSULIN PER SLIDING SCALE WERE GIVEN FOR BS OF 162. ALL NECESSARY NEEDS WERE MET. SAFETY, FALL AND SEIZURE PRECAUTIONS WERE MAINTAINED. WILL ENDORSE CARE TO AM NURSE. SAFETY, SEIZURE, AND FALL PRECAUTIONS IN PLACE. CALL LIGHT IN REACH.
[2016-10-13 06:49] LABS: PROTHROMBIN TIME 10.7 SECS (9.5-12.5)
--- NOTE | 2016-10-13 08:00 | NUR ---
AM INITIAL NOTES PT AAOX3, SLOW SPEECH WITH COMPLAINTS OF RIGHT LEG PAIN /. INFORMED RN FOR MEDICATION ADMINISTRATION. NO SOB, DIFFICULTY BREATHING OR DISTRESS NOTED. CAMPUS RECRUITING COORDINATOR IN PLACE. O2 VIA NASAL CANULA IS OFF. LEFT UPPER ARM AV SHUNT WITH BRUIT AND THRILL PRESENT. RIGHT FEMORAL CENTRAL LINE WITH DRESSING APPEARS DRY, CLEAN AND INTACT. VALENCIA CATHETER IN PLACE. FALL AND SAFETY PRECAUTIONS ENFORCED. REPOSITIONED AND KEPT COMFORTABLE. PT ON LOW AIRLOSS MATTRESS. BILATERAL LOWER EXTREMITIES APPEAR EDEMATOUS. ENCOURAGED TO CALL FOR ASSISTANCE. CALL LIGHT WITHIN REACH. WILL MONITOR.
[2016-10-13 08:17] VITALS: BP 124/85; PULSE 73; RESP 19; TEMP 98.5; O2SAT 96
--- NOTE | 2016-10-13 09:20 | NUR ---
DR. DANA JOHNSON DOING ROUNDS AND ASSESSED PATIENT.
[2016-10-13] MEDS: GABAPENTIN 300 MG CAPSULE PO SCH ×2 (09:25→21:20)
[2016-10-13] MEDS: CINACALCET HCL 30 MG TABLET PO SCH (09:25)
[2016-10-13] MEDS: levETIRAcetam 500 MG TABLET PO SCH ×2 (09:25→21:20)
[2016-10-13] MEDS: LamoTRIgine 100 MG TABLET PO SCH ×2 (09:25→21:20)
[2016-10-13] MEDS: SEVELAMER HCL 800 MG TABLET PO SCH ×3 (09:25→21:20)
[2016-10-13] MEDS: METOPROLOL SUCCINATE 50 MG TAB.SR.24H (TOPROL XL) PO SCH (09:26)
[2016-10-13] MEDS: ASPIRIN 81 MG TABLET(ECOTRIN) PO SCH (09:27)
[2016-10-13] MEDS: ARIPiprazole 5 MG TAB PO SCH (09:27)
[2016-10-13] MEDS: LOSARTAN POTASSIUM 50 MG TABLET (COZAAR) PO SCH (09:27)
[2016-10-13] MEDS: HEPARIN SODIUM,PORCINE 5000 UNITS/ML VIAL SUBCUT SCH ×2 (09:28→21:23)
--- NOTE | 2016-10-13 10:00 | NUR ---
ROUNDS PT ASLEEP. NO SIGNS OF FACIAL GRIMACING FOR PAIN OR DISCOMFORT. NO SIGNS OF SEIZURE ACTIVITY. SEIZURE PRECAUTION WITH PADDED RAILS IN PLACE. WILL MONITOR.
--- NOTE | 2016-10-13 12:07 | NUR ---
Rounds: Pt sitting semi-fowlers in bed. Denies pain. No acute signs of distress noted at this time. IV intact, no tremors or seizure activity noted. Call light in reach. Continue to monitor pt closely. Seizure precautions in place.
[2016-10-13 12:36] VITALS: BP 154/95; PULSE 66; RESP 17; TEMP 98.1; O2SAT 97
--- NOTE | 2016-10-13 14:00 | NUR ---
ROUNDS PT ASLEEP. NO SIGNS OF FACIAL GRIMACING FOR PAIN OR DISCOMFORT. NO DISTRESS NOTED. WILL CONTINUE TO MONITOR.
--- NOTE | 2016-10-13 15:00 | NUR ---
PAIN PT COMPLAINTS OF LEG PAINS 03/20. PT REFUSED TO BE REPOSITIONED. INFORMED RN FOR MEDICATION ADMINISTRATION.
[2016-10-13 15:34] VITALS: BP 143/83; PULSE 60; RESP 16; TEMP 97.1; O2SAT 95
--- NOTE | 2016-10-13 17:00 | NUR ---
ROUNDS PT ASLEEP. NO SIGNIFICANT CHANGES NOTED. WILL MONITOR.
[2016-10-13] MEDS: WARFARIN SODIUM 5 MG TABLET PO SCH (18:24)
--- NOTE | 2016-10-13 18:30 | NUR ---
CLOSING NOTES PT AWAKE WATCHING TV. NO COMPLAINTS OF PAIN OR DISCOMFORT AT THIS TIME. NO DISTRESS NOTED. WILL ENDORSE CARE TO INCOMING NURSE.
[2016-10-13 19:30] VITALS: BP 163/78; PULSE 60; RESP 16; TEMP 97.8; O2SAT 100
--- NOTE | 2016-10-13 19:30 | NUR ---
notes received the pt from the day nurse.pt a/a/ox4 c/o leg pain RN was notified,monitor in place and shows SR band aid intact to rt upper arm,lt arm with av shunt with good bruit. florence catheter intact and draining well.pt on seizure precautions,no seizure activity noted call light within reach,safety measures in progress cintinue to monitor.
[2016-10-13] MEDS: cefTRIAXone 1 GM IVPB PREMIX 50 ML IV SCH (20:12)
[2016-10-13] MEDS: LATANOPROST 2.5 ML DROPS (XALATAN) OP SCH (21:00)
--- NOTE | 2016-10-13 21:16 | NUR ---
notes went to give the pt his medication,pt having a seizure x15 seconds,charge nurse was called to the room RN will give the ativan.
[2016-10-13] MEDS: LORazepam 2 MG/ML VIAL IVP PRN (21:19)
[2016-10-13] MEDS: POLYETHYLENE GLYCOL 3350, 17 GM/ POWD.PACK PO SCH (21:20)
[2016-10-13] MEDS: SIMVASTATIN 20 MG TABLET PO SCH (21:20)
--- NOTE | 2016-10-13 21:25 | NUR ---
notes pt now awake alert asking for crackers.POmedication given and taken well.continue to monitor.
--- NOTE | 2016-10-13 23:14 | NUR ---
notes pt sleeping,padded rails are up.continue to monitor.
[2016-10-14] MEDS: MORPHINE 2 MG/ML INJ. SYRINGE IVP PRN ×4 (00:35→22:23)
[2016-10-14 00:50] VITALS: BP 144/87; PULSE 60; RESP 18; TEMP 97.6; O2SAT 99
--- NOTE | 2016-10-14 01:01 | NUR ---
notes pt awake and is refusing to turn ,was educated on the importance of turning every 2 hours but still refused.
--- NOTE | 2016-10-14 03:35 | NUR ---
notes pt sleeping awaken and asked if we can turn him ,pt refused.call light within reach.continue to monitor.
[2016-10-14 04:10] VITALS: BP 142/86; PULSE 64; RESP 20; TEMP 98.4; O2SAT 99
--- NOTE | 2016-10-14 04:57 | NUR ---
notes bed bath given ,lotion applied to dry feet and legs.pt refusing to stay on his side.o2 in place at 2l/min.continue to monitor.
--- NOTE | 2016-10-14 05:01 | NUR ---
notes pt weight is 346.2 lbs
[2016-10-14] MEDS: INSULIN REGULAR, HUMAN 100 UNITS/ML, 10 ML VIAL (novoLIN R) SUBCUT PRN ×2 (05:39→17:55)
--- NOTE | 2016-10-14 06:07 | NUR ---
closing notes accucheck was 168,insulin given per s/s. pt wants to have a bm but is refusing the bed bond.pt wants to sit on the basin.was told that he can not use a basin.pt states then i will just go in the bed and you can clean me.will endorse the care of the pt to the day nurse.
[2016-10-14 07:45] LABS: INR 1.1 (0.80-1.20); PROTHROMBIN TIME 11.8 SECS (9.5-12.5)
--- NOTE | 2016-10-14 08:00 | NUR ---
AM ASSESSMENT. NEEDS MET.
[2016-10-14 08:58] VITALS: BP 127/50; PULSE 72; RESP 14; TEMP 97.7; O2SAT 100
[2016-10-14] MEDS: METOPROLOL SUCCINATE 50 MG TAB.SR.24H (TOPROL XL) PO SCH (09:00)
[2016-10-14] MEDS: CINACALCET HCL 30 MG TABLET PO SCH (09:00)
--- NOTE | 2016-10-14 10:00 | NUR ---
ROUNDS WITH DOCTOR CASEY, PULMONOLOGY. CALL TO MD NEVAREZ FOR ROUNDS. URGENT MESSAGE LEFT ON VOICEMAIL. NO EVIDENCE OF SEIZURE.
[2016-10-14 10:17] LABS: CALCIUM 9.3 mg/dL (8.4-11.0); POTASSIUM 4.4 mmol/L (3.5-5.1)
[2016-10-14 10:21] LABS: CREATININE 11.31 mg/dL (0.55-1.30)
[2016-10-14 10:27] LABS: BASOPHILS % (AUTO) 0.9 % (0.0-2.0); EOSINOPHILS # (AUTO) 0.4 K/uL (0.0-0.4); EOSINOPHILS % (AUTO) 7.8 % (0.0-4.0); HEMATOCRIT 26.3 % (36-54); HEMOGLOBIN 8.6 g/dL (14.0-18.0); LYMPHOCYTES # (AUTO) 1.1 K/uL (1.0-5.5); LYMPHOCYTES % (AUTO) 23.1 % (20.5-51.5); MEAN CORPUSCULAR HEMOGLOBIN 34 pg (27-31); MEAN CORPUSCULAR HGB CONC 33 % (32-36); MEAN CORPUSCULAR VOLUME 103 fL (79.0-98.0); MONOCYTES # (AUTO) 0.6 K/uL (0.0-1.0); MONOCYTES % (AUTO) 11.6 % (1.7-9.3); NEUTROPHILS # (AUTO) 2.8 K/uL (1.8-7.7); NEUTROPHILS % (AUTO) 56.6 % (40.0-70.0); PLATELET COUNT (AUTO) 167 K/uL (130-430); RED BLOOD CELL COUNT(AUTO) 2.55 MIL/uL (4.2-6.2); RED CELL DISTRIBUTION WIDTH 14.9 % (9.0-15.0); WHITE BLOOD COUNT (AUTO) 4.9 K/uL (4.8-10.8)
--- NOTE | 2016-10-14 12:30 | NUR ---
PATIENT TOLERATED 100% OF LUNCH. NEEDS MET AT THIS TIME.
[2016-10-14 12:51] VITALS: BP 140/83; PULSE 59; RESP 16; TEMP 97.6; O2SAT 93
[2016-10-14] MEDS: LamoTRIgine 100 MG TABLET PO SCH ×2 (12:56→22:03)
[2016-10-14] MEDS: GABAPENTIN 300 MG CAPSULE PO SCH ×2 (12:56→22:03)
[2016-10-14] MEDS: ARIPiprazole 5 MG TAB PO SCH (12:56)
[2016-10-14] MEDS: SEVELAMER HCL 800 MG TABLET PO SCH ×3 (12:56→22:03)
[2016-10-14] MEDS: ASPIRIN 81 MG TABLET(ECOTRIN) PO SCH (12:57)
[2016-10-14] MEDS: LOSARTAN POTASSIUM 50 MG TABLET (COZAAR) PO SCH (12:57)
[2016-10-14] MEDS: levETIRAcetam 500 MG TABLET PO SCH ×2 (12:58→22:03)
[2016-10-14] MEDS: HEPARIN SODIUM,PORCINE 5000 UNITS/ML VIAL SUBCUT SCH ×2 (13:03→22:04)
--- NOTE | 2016-10-14 14:00 | NUR ---
PATIENT RESTING AFTER MORPHINE DOSE.
--- NOTE | 2016-10-14 16:51 | NUR ---
PATIENT ROUNDS. NEEDS MET AT THIS TIME. PATIENT AWAKE AT THIS TIME.
[2016-10-14 17:44] VITALS: BP 144/88; PULSE 58; RESP 20; TEMP 98.1; O2SAT 100
--- NOTE | 2016-10-14 19:50 | NUR ---
RN ROUNDS Patient in bed at this time resting with eyes closed. Respirations even and unlabored. No acute distress noted at this time. Patient denies any pain or discomfort at this time. Patient has a femoral block use for IV access. AV shunt on the left hand. Call light in hand. Fall and safety precautions in place. Will continue to monitor.
[2016-10-14 20:00] VITALS: BP 150/86; PULSE 59; RESP 18; TEMP 97.4; O2SAT 98
[2016-10-14] MEDS: POLYETHYLENE GLYCOL 3350, 17 GM/ POWD.PACK PO SCH ×2 (21:00→22:03)
[2016-10-14] MEDS: cefTRIAXone 1 GM IVPB PREMIX 50 ML IV SCH (22:03)
[2016-10-14] MEDS: SIMVASTATIN 20 MG TABLET PO SCH (22:03)
[2016-10-14] MEDS: LATANOPROST 2.5 ML DROPS (XALATAN) OP SCH (22:04)
--- NOTE | 2016-10-14 22:40 | NUR ---
RN ROUNDS Patient in bed at this time resting, respirations even and unlabored. No acute distress noted at this time. Fall and safety precautions in place. Will continue to monitor.
[2016-10-15] VITALS: BP 128/62; PULSE 80; RESP 20; TEMP 98.9; O2SAT 97
[2016-10-15] MEDS: INSULIN REGULAR, HUMAN 100 UNITS/ML, 10 ML VIAL (novoLIN R) SUBCUT PRN ×3 (00:27→23:34)
--- NOTE | 2016-10-15 02:22 | NUR ---
RN ROUNDS Patient in bed at this time resting with eyes closed. Respirations even and unlabored. No acute distress noted at this time. Patient in no apparent pain or discomfort at this time, no facial grimacing noted. Call light in hand. Fall and safety precautions in place. Will continue to monitor.
--- NOTE | 2016-10-15 04:12 | NUR ---
RN ROUNDS Patient in bed at this time resting watching TV. Respirations even and unlabored. No acute distress noted at this time. Patient in no apparent pain or discomfort at this time, no facial grimacing noted. Patient denies any pain or discomfort at this time. Call light in hand. Fall and safety precautions in place. Will continue to monitor.
[2016-10-15 04:18] VITALS: BP 132/86; PULSE 62; RESP 16; TEMP 97.3; O2SAT 98
--- NOTE | 2016-10-15 06:33 | NUR ---
Closing Note Patient refused to be cleaned throughout shift. Patient denies any pain or discomfort at this time. Patient refused to have dressing on femoral central line changed, even after providing education on the benefits on having dressing changed and the prevention on infection. All due meds given, all needs met. Call light in hand. Fall and safety precautions in place. Will endorse to day shift nurse.
--- NOTE | 2016-10-15 07:30 | NUR ---
Handoff report with noc nurse. Patient needs met at this time. Asking for morphine and television to be adjusted.
[2016-10-15 07:39] LABS: INR 1.3 (0.80-1.20); PROTHROMBIN TIME 14.1 SECS (9.5-12.5)
[2016-10-15 08:24] VITALS: BP 137/84; PULSE 60; RESP 18; TEMP 97; O2SAT 95
[2016-10-15] MEDS: ARIPiprazole 5 MG TAB PO SCH ×2 (08:27→11:40)
[2016-10-15] MEDS: LamoTRIgine 100 MG TABLET PO SCH ×3 (08:28→20:43)
[2016-10-15] MEDS: SEVELAMER HCL 800 MG TABLET PO SCH ×4 (08:28→20:43)
[2016-10-15] MEDS: levETIRAcetam 500 MG TABLET PO SCH ×3 (08:28→20:43)
[2016-10-15] MEDS: ASPIRIN 81 MG TABLET(ECOTRIN) PO SCH ×2 (08:28→11:41)
[2016-10-15] MEDS: LOSARTAN POTASSIUM 50 MG TABLET (COZAAR) PO SCH ×2 (08:28→11:41)
[2016-10-15] MEDS: GABAPENTIN 300 MG CAPSULE PO SCH ×3 (08:28→20:43)
[2016-10-15] MEDS: CINACALCET HCL 30 MG TABLET PO SCH ×2 (08:29→11:42)
[2016-10-15] MEDS: HEPARIN SODIUM,PORCINE 5000 UNITS/ML VIAL SUBCUT SCH ×3 (08:29→20:42)
[2016-10-15] MEDS: METOPROLOL SUCCINATE 50 MG TAB.SR.24H (TOPROL XL) PO SCH ×2 (08:29→11:41)
--- NOTE | 2016-10-15 08:37 | NUR ---
WITNESSED TONIC/CLONIC SEIZURE HD NURSE WENT INTO PATIENT ROOM AND FOUND PATIENT HAVING TONIC CLONIC SEIZURE; UPON ENTERING THE ROOM, PATIENT WAS VISUALIZED SHAKING WITH INCREASING RIGIDITY, UNABLE TO RESPOND. PATIENT GIVEN ATIVAN 1MG, IVP PER MD ORDER AND UNDER OBSERVATION X 5 MINUTES. PATIENT THEN ABLE TO OPEN EYES TO VOICE BUT UNABLE TO VERBALIZE NEEDS; PATIENT IN POSTICTAL STATE BUT BREATHING ON HIS OWN AND AWAKE. FLOOR RNKIRIT AWARE OF PATIENT CONDITION AND MEDICATIONS RECEIVED. HD NURSE AT BEDSIDE; PATIENT TO RECEIVE HD.
[2016-10-15] MEDS: LORazepam 2 MG/ML VIAL IVP PRN (08:44)
--- NOTE | 2016-10-15 09:30 | NUR ---
Rounds to patient on dialysis. Resting well at this time.
--- NOTE | 2016-10-15 11:43 | NUR ---
Rounds to pt needs met at this time. Dialysis finishing in next hour.
[2016-10-15 11:55] VITALS: BP 156/84; PULSE 65; RESP 18; TEMP 96.8; O2SAT 100
--- NOTE | 2016-10-15 12:49 | NUR ---
Patient appears much clearer and improved after dialysis. Discussion with patient about frequency of dialysis needing review. Does not verbalize understanding at this time. Continues to mention diet items on his list of foods which hinder recovery.
--- NOTE | 2016-10-15 13:30 | NUR ---
Assist with adl care at this time for grooming fingernails with soap, water, and cleaning beneath.
--- NOTE | 2016-10-15 15:51 | NUR ---
Patient to CT at this time.
--- NOTE | 2016-10-15 16:33 | NUR ---
Patient requesting coffee. Coffee provided. Patient says he needs to call his sister. Offered to use land line as cell phone is charging. Refuses at this time.
[2016-10-15 17:36] VITALS: BP 136/84; PULSE 65; RESP 20; TEMP 97.4; O2SAT 96
--- NOTE | 2016-10-15 18:54 | NUR ---
Handoff report to noc nurse. Needs met at this time. Requests items which may not be safe for use, commode and also more stool softeners. Will endorse to noc nurse.
--- NOTE | 2016-10-15 19:50 | NUR ---
Initial Note Patient in bed at this time resting with eyes closed. Respirations even and unlabored. No acute distress noted at this time. Patient denies any pain or discomfort at this time. Patient has a femoral block use for IV access. AV shunt on the left hand. Jacob, caregiver at the bedside. Patient had a bowel movement on the bedside commode. Call light in hand. Fall and safety precautions in place. Will continue to monitor.
[2016-10-15 20:00] VITALS: BP 144/78; PULSE 64; RESP 18; TEMP 98.4; O2SAT 98
[2016-10-15] MEDS: MORPHINE 2 MG/ML INJ. SYRINGE IVP PRN (20:42)
[2016-10-15] MEDS: POLYETHYLENE GLYCOL 3350, 17 GM/ POWD.PACK PO SCH (20:43)
[2016-10-15] MEDS: SIMVASTATIN 20 MG TABLET PO SCH (20:43)
[2016-10-15] MEDS: LATANOPROST 2.5 ML DROPS (XALATAN) OP SCH (20:43)
--- NOTE | 2016-10-15 21:38 | NUR ---
Central Line dressing changed Changed femoral central line dressing, using aseptic technic. Patient tolerated well. No foul odor or drainage noted.
--- NOTE | 2016-10-15 23:20 | NUR ---
RN ROUNDS Patient in bed at this time resting at this time. Respirations even and unlabored. No acute distress noted at this time. Patient denies any pain or discomfort at this time. Call light in hand. Fall and safety precautions in place. Will continue to monitor.
--- NOTE | 2016-10-16 00:13 | NUR ---
RN ROUNDS Patient in bed at this time resting, respiration even unlabored. No acute distress noted at this time. Patient denies any pain or discomfort at this time. Call light in hand. Fall and safety precautions in place. Will continue to monitor.
[2016-10-16 00:39] VITALS: BP 129/68; PULSE 60; RESP 16; TEMP 97.6; O2SAT 94
--- NOTE | 2016-10-16 01:52 | NUR ---
Transfer of Care Endorse patient to BJORN Amador. Patient is resting with eyes closed. Patient is stable at this time. Call light in hand. Fall and safety precautions in place.
--- NOTE | 2016-10-16 01:55 | NUR ---
notes received the pt from the RN ,pt sleeping ,no seizure activity noted,will continue to monitor.
[2016-10-16 04:29] VITALS: BP 141/68; PULSE 63; RESP 17; TEMP 97.3; O2SAT 97
--- NOTE | 2016-10-16 05:33 | NUR ---
notes pt awaken to change the batteries to the monitor,no complaints given.continue to monitor.
[2016-10-16] MEDS: INSULIN REGULAR, HUMAN 100 UNITS/ML, 10 ML VIAL (novoLIN R) SUBCUT PRN ×2 (06:15→12:16)
--- NOTE | 2016-10-16 06:31 | NUR ---
closing notes pt awake and is playing with his phone,accucheck [id number] insulin given per s/s.pts weight is 363.9lbs will endorse the care of the pt to the day nurse.
--- NOTE | 2016-10-16 07:50 | NUR ---
AM ROUNDS Patient is awake and resting in bed, alert and oriented x 3, denies pain at this time, assessment complete. Educated patient on use of call light system, patient verbalized understanding, patient's bed left in lowest position, three side rails up, call wooten within reach, bed alarm on, fall and seizure precautions in place. Will continue to monitor
[2016-10-16 08:15] VITALS: BP 155/82; PULSE 65; RESP 16; TEMP 97.2; O2SAT 97
[2016-10-16] MEDS: HEPARIN SODIUM,PORCINE 5000 UNITS/ML VIAL SUBCUT SCH (09:40)
[2016-10-16] MEDS: LOSARTAN POTASSIUM 50 MG TABLET (COZAAR) PO SCH (09:41)
[2016-10-16] MEDS: levETIRAcetam 500 MG TABLET PO SCH (09:42)
[2016-10-16] MEDS: ASPIRIN 81 MG TABLET(ECOTRIN) PO SCH (09:42)
[2016-10-16] MEDS: CINACALCET HCL 30 MG TABLET PO SCH (09:42)
[2016-10-16] MEDS: LamoTRIgine 100 MG TABLET PO SCH (09:42)
[2016-10-16] MEDS: GABAPENTIN 300 MG CAPSULE PO SCH (09:42)
[2016-10-16] MEDS: SEVELAMER HCL 800 MG TABLET PO SCH ×2 (09:43→16:08)
[2016-10-16] MEDS: METOPROLOL SUCCINATE 50 MG TAB.SR.24H (TOPROL XL) PO SCH (09:43)
[2016-10-16] MEDS: ARIPiprazole 5 MG TAB PO SCH (09:43)
--- NOTE | 2016-10-16 09:45 | NUR ---
MEDICATION PASS Patient given morning medications, educated patient on potential side effects of medications, patient verbalized understanding, instructed patient to use call wooten if assistance is needed, patient verbalized understanding, call wooten left in patient's hand, bed in lowest position, three side rails up, bed alarm on, seizure and fall precaution in place, will continue to monitor patient.
--- NOTE | 2016-10-16 12:43 | NUR ---
MEDICATION PASS GLUCOSE WAS CHECK, BS 188, SHOWS 3 UNITS GIVEN ON EMR, PATIENT WAS GIVEN 2 UNITS OF INSULIN WITH COSIGN FROM ANOTHER RN, PATIENT TOLERATED WELL, BED IN LOWEST POSITION, BED ALARM ON, CALL FLORENTINO WITHIN PATIENT'S REACH, FALL AND SEIZURE PRECAUTIONS IN PLACE, WILL CONTINUE TO MONITOR
[2016-10-16 12:48] VITALS: BP 155/86; PULSE 63; RESP 18; TEMP 98.9; O2SAT 99
--- NOTE | 2016-10-16 14:00 | NUR ---
OK TO DISCHARGE DR PEÑA CLEARED PATIENT TO DISCHARGE WHILE HERE AT NURSE'S STATION, DR GUERRA SPOKE WITH DR PLEITEZ OVER THE PHONE, DR PLEITEZ STATED OK TO DISCHARGE.
--- NOTE | 2016-10-16 14:05 | NUR ---
RN ROUNDS patient is stable, no complaints of pain or discomfort, instructed patient to use call wooten when assistance is needed, bed in lowest position, bed alarm on, call wooten within reach, three side rails up, fall and seizure precautions in place, will continue to monitor
--- NOTE | 2016-10-16 14:25 | NUR ---
DISCHARGE PLAN SPOKE WITH BENEDICT FROM [facility] REGARDING PATIENT DISCHARGE, BENEDICT STATED THE PATIENT NEEDS TO BE EVALUATED BY THEIR FACILITY IN ORDER TO DETERMINE WHAT HOME HEALTH NEEDS THAT PATIENT WILL REQUIRE AFTER THIS HOSPITAL STAY. BENEDICT STATED THAT A NURSE FROM THEIR FACILITY WILL NEED TO COME EVALUATE THE PATIENT BUT BENEDICT IS NOT SURE IF A NURSE IS AVAILABLE TODAY, MADE DR GUERRA AWARE AND HE STATED THAT THE DISCHARGE CANNOT BE HELD UNTIL TOMORROW, INFORMED BENEDICT THAT A NURSE WILL NEED TO COME SEE THE PATIENT TODAY IN ORDER FOR THE PATIENT TO DISCHARGE TODAY, REFERRED BENEDICT TO CASE MANAGEMENT IN ORDER TO SET UP NURSE EVALUATION, WILL FOLLOW UP.
--- NOTE | 2016-10-16 14:32 | NUR ---
SPOKE WITH PATIENT SISTER REGARDING DISCHARGE PLAN FOR TODAY, INFORMED THAT I SPOKE WITH [facility] AND REFERRED THEM TO OUR CASE MANAGEMENT IN ORDER TO SET UP A NURSE EVALUATION FOR THE PATIENT PRIOR TO DISCHARGE, INFORMED THE SISTER THAT THE PATIENT IS CLEARED TO RETURN HOME BY ALL OF THE DOCTORS AND THAT THE DISCHARGE CANNOT BE HELD UNTIL TOMORROW, SISTER VERBALIZED UNDERSTANDING.
--- NOTE | 2016-10-16 15:13 | NUR ---
FEMORAL CENTRAL LINE REMOVED Femoral central line removed by charge nurse; dressing dry and intact, no bleeding noted, 5lb sand bag placed on top of site, will continue to monitor
[2016-10-16 15:32] VITALS: BP 153/93; PULSE 65; RESP 19; TEMP 96.9; O2SAT 99
--- NOTE | 2016-10-16 16:25 | NUR ---
RN ROUND patient is stable, resting in bed, watching television, no complaints of pain or discomfort at this time, instructed patient to use call wooten if assistance is needed, patient verbalized understanding, bed in lowest position, bed alarm on , call wooten within patient's reach, three side rails up, fall and seizure precautions in place. Will continue to monitor patient.
[2016-10-16 16:26] VITALS: BP 153/93; PULSE 63; RESP 19; TEMP 96.9; O2SAT 100
--- NOTE | 2016-10-16 17:31 | NUR ---
D/C Patient Patient given medication reconciliation form and D/C instructions. Exit Care provided. Patient verbalized understanding. MD discussed with patient the results and treatment provided. Ambulatory with steady gait for discharge to home. Patient in stable condition, ID band removed. Femoral central line catheter site checked, dressing intact and no bleeding noted. Rx of keprra given. Patient educated on pain management. All belongings sent with patient.
== END 2016-10-16 17:31 | disposition home or self-care (01) | DRG 197 ==
LOC: SED 17:37 → STU 20:51
PROVIDERS: ADMIT Internal Medicine Hospice and Palliative Medicine; ATTEND Internal Medicine Hospice and Palliative Medicine
PROC: 02HV33Z Insertion of Infusion Device into Superior Vena Cava, Percutaneous Approach (ICD-10-PCS; principal; 2016-10-08)
PROC: B548ZZA Ultrasonography of Superior Vena Cava, Guidance (ICD-10-PCS; 2016-10-08)
PROC: 5A1D60Z (ICD-10-PCS; 2016-10-08)
DX: I82.412 Acute embolism and thrombosis of left femoral vein (principal); G93.40 Encephalopathy, unspecified; I13.2 Hypertensive heart and chronic kidney disease with heart failure and with stage 5 chronic kidney disease, or end stage renal disease; E11.22 Type 2 diabetes mellitus with diabetic chronic kidney disease; N18.6 End stage renal disease; N39.0 Urinary tract infection, site not specified; F79 Unspecified intellectual disabilities; G40.909 Epilepsy, unspecified, not intractable, without status epilepticus; E66.9 Obesity, unspecified; M10.9 Gout, unspecified; H40.9 Unspecified glaucoma; G47.30 Sleep apnea, unspecified; I50.9 Heart failure, unspecified; K21.9 Gastro-esophageal reflux disease without esophagitis; E78.5 Hyperlipidemia, unspecified; D64.9 Anemia, unspecified; Z96.653 Presence of artificial knee joint, bilateral; Z68.41 Body mass index [BMI] 40.0-44.9, adult; Z99.2 Dependence on renal dialysis; Z88.8 Allergy status to other drugs, medicaments and biological substances; Z79.899 Other long term (current) drug therapy; Z86.73 Personal history of transient ischemic attack (TIA), and cerebral infarction without residual deficits; Z79.4 Long term (current) use of insulin
CPT/HCPCS: 36415; 70450-TC; 73700-TC; 74000-TC; 80048; 80053; 80074; 80307; 81000-TC; 82962; 85025; 85610-TC; 85730-TC; 87081; 87086; 90935; 90937; 93005; 93970; 96365; 96375; 97110-GP; 97116-GP; 97530-GP; 99285; C1751; J0696; J0885; J1644; J1815; J2060; J2270; J7030; J7040; J7042; J7050

== ENCOUNTER 2016-11-14 11:43 | Inpatient (IN) | payer OTHER ==
[~2016-11-14] VITALS: Ht 195.6 cm; Wt 160.6 kg
[2016-11-14 11:45] VITALS: BP 144/92; PULSE 60; RESP 14; TEMP 97; O2SAT 100
--- NOTE | 2016-11-14 11:45 | NUR ---
ER at bedside examining patient.
--- NOTE | 2016-11-14 11:45 | NUR ---
EDEL SQ 1Placed in room 01 . Placed on electronic device monitor, blood pressure machine and pulse oximeter. Side rails up per Gene Kuo RN Addendum: 11/14/16 at 1515 by HOLDEN SQ 61
[2016-11-14] MEDS ORDERED: LORazepam 2 MG/ML VIAL (FOR ER USE) ONE ×2 (11:53→12:26)
[2016-11-14] MEDS ORDERED: LORazepam 2 MG/ML VIAL (FOR ER USE) IVP ONE (12:00)
--- NOTE | 2016-11-14 12:02 | NUR ---
X Ray at bedside
--- NOTE | 2016-11-14 12:05 | NUR ---
obtained report, patient laying supine on cardiac/sao2 monitor with high alarms on 2L O2 with SZ precautions in place. Pt drowsy and responds to verbal commands with one word answers. Report obtained that multiple attempts for IV access unsucessfull order for central line obtained from Dr. Painting. No s/s of distress at this time will set up for central line
--- NOTE | 2016-11-14 12:50 | NUR ---
Triple lumen cath placed in right femoral artery by Dr. Painting using sterile technique pt tolerated well. Pt unable to consent due to ALOC. Labs drawn and lines flushed with 10ml NS, bio patch and dressing applied. During dressing pt had focal sz with movement to left shoulder and left arm no respiratory decrease or incontinence noted, Ativen 2mg given IVP per Dr. Painting's order. SZ precautions still in place. awaiting admission
--- NOTE | 2016-11-14 12:58 | NUR ---
Telemetry strip printed, interpreted as SINUS RHYTHM at 64 bpm, and placed on the chart.
[2016-11-14 13:00] LABS: PROTHROMBIN TIME 10.5 SECS (9.5-12.5)
[2016-11-14 13:03] LABS: BASOPHILS % (AUTO) 0.9 % (0.0-2.0); EOSINOPHILS # (AUTO) 0.3 K/uL (0.0-0.4); EOSINOPHILS % (AUTO) 8.6 % (0.0-4.0); HEMATOCRIT 28.9 % (36-54); HEMOGLOBIN 9.8 g/dL (14.0-18.0); LYMPHOCYTES # (AUTO) 1.1 K/uL (1.0-5.5); MEAN CORPUSCULAR HEMOGLOBIN 35 pg (27-31); MEAN CORPUSCULAR HGB CONC 34 % (32-36); MEAN CORPUSCULAR VOLUME 102 fL (79.0-98.0); MONOCYTES # (AUTO) 0.4 K/uL (0.0-1.0); MONOCYTES % (AUTO) 9.3 % (1.7-9.3); NEUTROPHILS # (AUTO) 2.2 K/uL (1.8-7.7); NEUTROPHILS % (AUTO) 54.2 % (40.0-70.0); PLATELET COUNT (AUTO) 141 K/uL (130-430); RED BLOOD CELL COUNT(AUTO) 2.83 MIL/uL (4.2-6.2)
[2016-11-14] MEDS ORDERED: LAMO150T2 PO (13:34)
[2016-11-14] MEDS ORDERED: BISA5TAB10 PO (13:34)
[2016-11-14] MEDS ORDERED: CINA90TA PO (13:34)
[2016-11-14] MEDS ORDERED: LATA2.5D6 OP (13:34)
[2016-11-14] MEDS ORDERED: GABA-533 PO (13:34)
[2016-11-14] MEDS ORDERED: INSU100V26 SUBCUT ×2 (13:34)
[2016-11-14] MEDS ORDERED: NIZCR60 TP (13:34)
[2016-11-14] MEDS ORDERED: INSU100V9 SUBCUT (13:34)
[2016-11-14] MEDS ORDERED: LOSA50TA3 PO (13:34)
[2016-11-14] MEDS ORDERED: TUM500 PO (13:34)
[2016-11-14] MEDS ORDERED: SEVE800T10 PO (13:34)
[2016-11-14 13:39] LABS: ALANINE AMINOTRANSFERASE 19 U/L (12-78); ALBUMIN 4.2 g/dL (3.4-4.8); ANION GAP 11 (5-15); ASPARTATE AMINOTRANSFERASE 22 U/L (10-37); CALCIUM 9.2 mg/dL (8.4-11.0); CHLORIDE 101 mmol/L (98-107); CREATININE 11.96 mg/dL (0.55-1.30); FREE T4 (FREE THYROXINE) 0.9 ng/dL (0.6-1.6); GLUCOSE 160 mg/dL (70-99); POTASSIUM 4.4 mmol/L (3.5-5.1); SODIUM SERUM 139 mmol/L (136-145); TOTAL BILIRUBIN 0.6 mg/dL (0.0-1.0); TOTAL PROTEIN, SERUM 7.9 g/dL (6.4-8.3); UREA NITROGEN, BLOOD 36 mg/dL (8-21)
[2016-11-14 13:42] LABS: GFR AFRICAN AMERICAN 6 mL/min (>90)
[2016-11-14 13:45] LABS: ALCOHOL, BLOOD < 3 mg/dL (<10)
[2016-11-14] MEDS ORDERED: ONDANSETRON HCL 4 MG/2 ML VIAL IVP PRN (14:15)
[2016-11-14] MEDS ORDERED: DOCUSATE SODIUM 100 MG CAPSULE PO PRN (14:15)
[2016-11-14] MEDS ORDERED: CALCIUM CARBONATE 500 MG/ TAB.CHEW PO PRN (14:15)
[2016-11-14] MEDS ORDERED: MORPHINE 2 MG/ML INJ. SYRINGE IVP PRN (14:15)
[2016-11-14] MEDS ORDERED: POTASSIUM CHLORIDE 10 MEQ TAB.PRT.SR PO PRN (14:15)
[2016-11-14] MEDS ORDERED: DEXTROSE 50% JECT 50 ML DISP.SYRIN IVP PRN (14:15)
[2016-11-14] MEDS ORDERED: BISACODYL 5 MG TABLET.DR (DULCOLAX) PO PRN (14:15)
[2016-11-14] MEDS ORDERED: LORazepam 2 MG/ML VIAL IVP PRN (14:15)
[2016-11-14] MEDS ORDERED: MAGNESIUM SULFATE 50 ML IV PRN (14:15)
[2016-11-14] MEDS ORDERED: ZOLPIDEM TARTRATE 5 MG TABLET PO PRN (14:15)
[2016-11-14] MEDS ORDERED: ACETAMINOPHEN 325 MG TABLET PO PRN (14:15)
--- NOTE | 2016-11-14 14:15 | NUR ---
Transfer to 102A via ACLS protocol. Licensed nurse present. Patient will be admitted to care of Dr. Galeas. Admitted to TELE unit. Will go to room 102A. Belongings list completed. Summary report printed. Report given to Lucy.
--- NOTE | 2016-11-14 14:17 | NUR ---
ADMIT NOTE Received pt from ER to the floor with a diagnosis of SEIZURES. Admission process initiated. patient oriented to pain management, safety and call light-teach back done.
--- NOTE | 2016-11-14 14:40 | NUR ---
Consult was called Re:Breakthrough Seizure spoke with Anca from Dr Rosado office .
--- NOTE | 2016-11-14 14:41 | NUR ---
Consult was called Re:Jamar spoke with Germania from Dr Barajas office .
[2016-11-14] MEDS: LamoTRIgine 100 MG TABLET PO SCH ×2 (15:00→20:53)
[2016-11-14 15:04] LABS: BILIRUBIN,URINE NEGATIVE (NEGATIVE); BLOOD, URINE 1+ (NEGATIVE); CLARITY/URINE SLIGHTLY HAZY (CLEAR); COLOR,URINE YELLOW (YELLOW); GLUCOSE,URINE NEGATIVE (NEGATIVE); KETONES,URINE NEGATIVE (NEGATIVE); LEUKOCYTE ESTERASE ,URINE TRACE (NEGATIVE); NITRITE, URINE NEGATIVE (NEGATIVE); PROTEIN URINE 2+ (NEGATIVE); UROBILINOGEN,URINE 0.2 (0.2-1.0)
[2016-11-14 15:16] LABS: BARBITURATE, URINE NEGATIVE (NEG <=200); BENZODIAZEPINE, URINE NEGATIVE (NEG <=150); CANNABINOID, URINE NEGATIVE (NEG <=50); COCAINE, URINE NEGATIVE (NEG <=150); METHAMPHETAMINES SCREEN,URINE NEGATIVE (NEG <=500); OPIATE, URINE NEGATIVE (NEG <=100); PHENCYCLIDINE SCREEN,URINE NEGATIVE (NEG <=25); UR TRICYCLIC ANTIDEPRESSANTS NEGATIVE (NEG <=300); URINE AMPHETAMINE NEGATIVE (NEG <=500); URINE METHADONE NEGATIVE (NEG <=200); URINE OXYCODONE SCREEN NEGATIVE (NEG <=100); URINE PROPOXYPHENE SCREEN NEGATIVE (NEG <=300)
[2016-11-14 15:25] LABS: BACTERIA,URINE FEW /HPF (None Seen); RBC,URINE 0-3 /HPF (0-3); WBC,URINE 50-80 /HPF (0-3)
[2016-11-14 15:26] LABS: MUCUS,URINE None Seen /LPF (None Seen)
[2016-11-14 16:00] VITALS: BP 155/95; PULSE 56; RESP 18; TEMP 97.3; O2SAT 100
--- NOTE | 2016-11-14 16:00 | NUR ---
rounds rec patient asleep but arousable to stimuli. wakes up intervals but does not remember why he is here. r femoral line triple lumen intact and no bleeding noted. leoncio [employer] representative from [facility] [place] at the bedside and giving information re the patient. av shunt on the left upper arm in place with good bruit. no sob noted.
[2016-11-14 16:24] VITALS: BP 146/68; PULSE 99; RESP 15; TEMP 99; O2SAT 100
[2016-11-14 17:13] VITALS: BP 158/98; PULSE 55; RESP 12; TEMP 97.3; O2SAT 100
--- NOTE | 2016-11-14 17:30 | NUR ---
rounds dr simpson at the bedside to assess patient. arline dialysis nurse at the bedside as well to start on dialysis. pt wakes up on and off and still not remembering anything why he is here. stable. resp is 13 but saturation is 100%.
--- NOTE | 2016-11-14 18:40 | NUR ---
closing notes dialysis still in progress. resp easy and unlabored. continue to wake up on and off. no confusion noted. stable, needs attended. no hypo hyperglycemic reaction noted.
[2016-11-14] MEDS: INSULIN ASPART 100 UNITS/ML, 10 ML VIAL (NovoLOG) SUBCUT PRN (19:05)
[2016-11-14 19:55] VITALS: BP 148/92; PULSE 60; RESP 20; TEMP 98; O2SAT 94
--- NOTE | 2016-11-14 19:55 | NUR ---
NOTES; SEEN PT IN BED, A/A/O X2. DIALYSIS ONGOING VIA AV SHUNT ON THE LEFT UPPER ARM. . NO ACUTE DISTRESS NOTED, VITAL SIGNS STABLE, AFEBRILE. RT FEMORAL LINE WITH TRIPLE LUMEN NOTED. DRESSING CLEAN,DRY, AND INTACT.OLD AV SHUNT TO THE LEFT LOWER ARM, NOT WORKING. DENIES ANY PAIN AT THIS TIME. INSTRUCTED PT ON THE USE OF CALL LIGHT, PT VERBALIZED UNDERSTANDING. BED LOCKED AND IN LOW POSITION, SIDE RAILS UP X3 AND PADDED. SAFETY MEASURES IN PROGRESS. WILL CONTINUE TO MONITOR.
--- NOTE | 2016-11-14 20:30 | NUR ---
NOTES; DIALYSIS COMPLETED. 4000 OUT PUT. PT IN STABLE CONDITION.
[2016-11-14] MEDS: levETIRAcetam 500 MG TABLET PO SCH (20:51)
[2016-11-14] MEDS: LATANOPROST 2.5 ML DROPS (XALATAN) OP SCH (20:51)
[2016-11-14] MEDS: CINACALCET HCL 30 MG TABLET PO SCH (20:52)
[2016-11-14] MEDS: GABAPENTIN 400 MG CAPSULE PO SCH (20:53)
[2016-11-14] MEDS: SIMVASTATIN 20 MG TABLET PO SCH (20:53)
[2016-11-14] MEDS: POLYETHYLENE GLYCOL 3350, 17 GM/ POWD.PACK PO SCH ×2 (20:54→21:29)
[2016-11-14] MEDS: SEVELAMER HCL 800 MG TABLET PO SCH (20:57)
--- NOTE | 2016-11-14 21:00 | NUR ---
NOTES; BLOOD SUGAR FOUND TO BE 128. NO INSULIN NEEDED PER SLIDING SCALE ORDER. SCHEDULED PO MEDICATION ADMINISTERED.
--- NOTE | 2016-11-14 22:00 | NUR ---
NOTES; INCONTINENT OF LARGE LOOSE BROWN STOOL. TOTAL BED BATH GIVEN, TOTAL LINEN CHANGED. SAFETY MEASURES IN PROGRESS.
[2016-11-15 00:10] VITALS: BP 124/71; PULSE 64; RESP 18; TEMP 97.3; O2SAT 100
--- NOTE | 2016-11-15 00:30 | NUR ---
NOTES; APPEARED TO BE SLEEPING, EYES CLOSED. CHEST RISE AND FALL. EASILY AROUSED. SAFETY MEASURES IN PROGRESS.
--- NOTE | 2016-11-15 02:00 | NUR ---
NOTES; APPEARED TO BE SLEEPING, EYES CLOSED. CHEST RISE AND FALL. EASILY AROUSED. SAFETY MEASURES IN PROGRESS.
[2016-11-15 04:17] VITALS: BP 155/83; PULSE 64; RESP 16; TEMP 97.4; O2SAT 100
--- NOTE | 2016-11-15 04:20 | NUR ---
NOTES; APPEARED TO BE SLEEPING, EYES CLOSED. CHEST RISE AND FALL. EASILY AROUSED. SAFETY MEASURES IN PROGRESS.
--- NOTE | 2016-11-15 06:45 | NUR ---
NOTES; AWAKE, IN BED. NO ACUTE DISTRESS NOTED. VITAL SIGNS STABLE, AFEBRILE. DENIES ANY PAIN AT THIS TIME. ALL NEEDS ATTENDED. SAFETY MEASURES MAINTAINED.
--- NOTE | 2016-11-15 07:45 | NUR ---
Nutrition Update Berhane Scale 17 noted. Pt admitted for breakthrough seizure. Diet: CCHO, renal standard BMI: 42.1 kg/m2 RD to follow per nutrition care standards.
[2016-11-15 08:03] VITALS: BP 147/96; PULSE 57; RESP 20; TEMP 97.5
[2016-11-15 08:41] LABS: BASOPHILS % (AUTO) 0.6 % (0.0-2.0); EOSINOPHILS # (AUTO) 0.3 K/uL (0.0-0.4); EOSINOPHILS % (AUTO) 5.9 % (0.0-4.0); HEMATOCRIT 30.7 % (36-54); HEMOGLOBIN 10.1 g/dL (14.0-18.0); LYMPHOCYTES # (AUTO) 0.9 K/uL (1.0-5.5); LYMPHOCYTES % (AUTO) 19.2 % (20.5-51.5); MEAN CORPUSCULAR HEMOGLOBIN 34 pg (27-31); MEAN CORPUSCULAR HGB CONC 33 % (32-36); MEAN CORPUSCULAR VOLUME 103 fL (79.0-98.0); MONOCYTES # (AUTO) 0.3 K/uL (0.0-1.0); MONOCYTES % (AUTO) 7.4 % (1.7-9.3); NEUTROPHILS % (AUTO) 66.9 % (40.0-70.0); PLATELET COUNT (AUTO) 152 K/uL (130-430); RED BLOOD CELL COUNT(AUTO) 2.96 MIL/uL (4.2-6.2); RED CELL DISTRIBUTION WIDTH 15.8 % (9.0-15.0); WHITE BLOOD COUNT (AUTO) 4.5 K/uL (4.8-10.8)
[2016-11-15 09:18] LABS: CALCIUM 8.8 mg/dL (8.4-11.0); PHOSPHORUS 4.2 mg/dL (2.7-4.5); POTASSIUM 4.5 mmol/L (3.5-5.1)
[2016-11-15 09:21] LABS: CREATININE 9.92 mg/dL (0.55-1.30)
[2016-11-15] MEDS: LamoTRIgine 100 MG TABLET PO SCH ×3 (10:00→20:41)
[2016-11-15] MEDS: levETIRAcetam 500 MG TABLET PO SCH ×3 (10:00→20:41)
[2016-11-15] MEDS: ARIPiprazole 5 MG TAB PO SCH (10:27)
[2016-11-15] MEDS: ASPIRIN 81 MG TABLET(ECOTRIN) PO SCH (10:30)
[2016-11-15] MEDS: LOSARTAN POTASSIUM 50 MG TABLET (COZAAR) PO SCH (10:32)
[2016-11-15] MEDS: METOPROLOL SUCCINATE 50 MG TAB.SR.24H (TOPROL XL) PO SCH (10:33)
[2016-11-15] MEDS: SEVELAMER HCL 800 MG TABLET PO SCH ×2 (11:34→20:59)
[2016-11-15 11:45] VITALS: BP 154/89; PULSE 60; RESP 19; TEMP 97; O2SAT 96
[2016-11-15] MEDS: INSULIN ASPART 100 UNITS/ML, 10 ML VIAL (NovoLOG) SUBCUT PRN (11:48)
[2016-11-15 15:11] VITALS: Ht 195.6 cm; Wt 160.6 kg
[2016-11-15 15:28] VITALS: BP 128/80; PULSE 55; RESP 16; TEMP 97.2; O2SAT 100
--- NOTE | 2016-11-15 19:50 | NUR ---
ROUNDS PATIENT IN BED, WATCHING TV, NOT IN DISTRESS, VITALS STABLE. DENIES ANY PAIN AND DISCOMFORT AT THIS TIME. ASSESSMENT DONE AND DOCUMENTED. SEE FLOWSHEET. NEEDS ATTENDED TO. MADE CLEAN AND COMFORTABLE. SAFETY AND FALL PRECAUTION MEASURES IN PLACED. BED IN LOW AND LOCKED POSITION. BED ALARM ON. CALL LIGHT PLACED WITHIN REACH.
--- NOTE | 2016-11-15 20:30 | NUR ---
NOTES DR. CELIS MAKING ROUNDS AND SAW PATIENT, WITH NEW ORDERS. WILL CONTINUE TO MONITOR.
[2016-11-15] MEDS: CINACALCET HCL 30 MG TABLET PO SCH (20:40)
[2016-11-15] MEDS: GABAPENTIN 400 MG CAPSULE PO SCH (20:43)
[2016-11-15] MEDS: LATANOPROST 2.5 ML DROPS (XALATAN) OP SCH (20:44)
[2016-11-15] MEDS: POLYETHYLENE GLYCOL 3350, 17 GM/ POWD.PACK PO SCH (20:45)
[2016-11-15] MEDS: SIMVASTATIN 20 MG TABLET PO SCH (21:00)
[2016-11-16] VITALS: BP 137/80; PULSE 53; RESP 18; TEMP 97.1; O2SAT 100
--- NOTE | 2016-11-16 00:10 | NUR ---
PATIENT RESTING: Patient resting quietly. No acute distress noted. Vital signs within normal range.
[2016-11-16 04:00] VITALS: BP 137/92; PULSE 57; RESP 18; TEMP 97; O2SAT 100
--- NOTE | 2016-11-16 04:00 | NUR ---
PATIENT RESTING: Patient resting quietly. No acute distress noted. Vital signs within normal range.
--- NOTE | 2016-11-16 06:28 | NUR ---
CLOSING NOTES PATIENT AWAKE, VITALS STABLE, NO PAIN AND DISCOMFORT AT THIS TIME. ACCU CHECK DONE WITH BLOOD SUGAR OF 127 MG/DL. ALL NEEDS ATTENDED TO. SAFETY AND FALL PRECAUTION MEASURES MAINTAINED. CALL LIGHT PLACED WITH PATIENT.
[2016-11-16 07:28] LABS: BASOPHILS % (AUTO) 0.7 % (0.0-2.0); EOSINOPHILS # (AUTO) 0.3 K/uL (0.0-0.4); EOSINOPHILS % (AUTO) 7.7 % (0.0-4.0); HEMATOCRIT 31.8 % (36-54); HEMOGLOBIN 10.3 g/dL (14.0-18.0); LYMPHOCYTES # (AUTO) 1.3 K/uL (1.0-5.5); LYMPHOCYTES % (AUTO) 31.8 % (20.5-51.5); MEAN CORPUSCULAR HEMOGLOBIN 33 pg (27-31); MEAN CORPUSCULAR HGB CONC 32 % (32-36); MEAN CORPUSCULAR VOLUME 103 fL (79.0-98.0); MONOCYTES # (AUTO) 0.4 K/uL (0.0-1.0); MONOCYTES % (AUTO) 9.4 % (1.7-9.3); NEUTROPHILS # (AUTO) 2.2 K/uL (1.8-7.7); NEUTROPHILS % (AUTO) 50.4 % (40.0-70.0); PLATELET COUNT (AUTO) 152 K/uL (130-430); RED BLOOD CELL COUNT(AUTO) 3.09 MIL/uL (4.2-6.2); RED CELL DISTRIBUTION WIDTH 15.8 % (9.0-15.0); WHITE BLOOD COUNT (AUTO) 4.2 K/uL (4.8-10.8)
--- NOTE | 2016-11-16 07:30 | NUR ---
NRSG: RECEIVED PATIENT LYING ON BED ,AWAKE,ALERT AND ORIENTED X 4. RESPIRATION EVEN AND UNLABORED. LUNGS CLEAR. NO C/O OF PAIN. HAD AV SHUNT ON THE LEFT UPPER ARM AND HAD TRIPLE LUMEN ON THE RIGHT GROIN INTACT AND INPLACED , NO SIGN AND SYMPTOMS OF INFILTRATION. HAD DISCOLORATION ON THE LOWER EXTREMITIES AND WITH DRY HEEL AND ELEVATED WITH PILLOWS.
[2016-11-16 07:50] LABS: CALCIUM 9.2 mg/dL (8.4-11.0); POTASSIUM 4.2 mmol/L (3.5-5.1)
[2016-11-16 08:00] VITALS: BP 149/97; PULSE 57; RESP 18; TEMP 96.7; O2SAT 100
[2016-11-16 08:05] LABS: CREATININE 11.34 mg/dL (0.55-1.30)
[2016-11-16] MEDS: METOPROLOL SUCCINATE 50 MG TAB.SR.24H (TOPROL XL) PO SCH (09:00)
[2016-11-16] MEDS: LOSARTAN POTASSIUM 50 MG TABLET (COZAAR) PO SCH (09:00)
[2016-11-16] MEDS: ASPIRIN 81 MG TABLET(ECOTRIN) PO SCH (09:12)
[2016-11-16] MEDS: ARIPiprazole 5 MG TAB PO SCH (09:12)
[2016-11-16] MEDS: levETIRAcetam 500 MG TABLET PO SCH (09:13)
[2016-11-16] MEDS: SEVELAMER HCL 800 MG TABLET PO SCH (09:20)
--- NOTE | 2016-11-16 09:30 | NUR ---
DIALYSIS: DIALYSIS IS STARTED , AND THE BP MEDS WAS HELD.WILL GIVE POST DIALYSIS.
[2016-11-16 10:43] VITALS: BP 140/88; PULSE 57; RESP 18; TEMP 97.6; O2SAT 100
[2016-11-16 12:00] VITALS: BP 133/93; PULSE 57; RESP 18; TEMP 97.2; O2SAT 100
[2016-11-16] MEDS: INSULIN ASPART 100 UNITS/ML, 10 ML VIAL (NovoLOG) SUBCUT PRN (12:24)
--- NOTE | 2016-11-16 12:40 | NUR ---
POST DIALYSIS: 3 LITERS OUT FROM DIALYSIS. PATIENT WAS EAGER TO GO HOME . TRIED TO FINISH UP DISCHARGE PAPER .
--- NOTE | 2016-11-16 14:02 | NUR ---
FAMILY: TRIED TO CALL THE SISTER ARJUN MOORE TO NOTIFY PATIENT WILL GOING BACK HOME BUT UNABLE TO REACH AND WAS A WRONG NUMBER.
--- NOTE | 2016-11-16 14:20 | NUR ---
DISCHARGE PAPER: ALL DISCHARGE PAPER GIVEN TO PATIENT AND SIGNED .
--- NOTE | 2016-11-16 14:30 | NUR ---
FAMILY: SISTER OF PATIENT SUSHMA CALLED AND SPOKE TO CHARGE NURSE THAT WHY SHE WAS NOT NOTIFY PATIENT IS GONING HOME AND CHARGE NURSE JACOB EXPLAINED TO HER THAT NURSE CALLED BUT UNABLE TO REACH .
--- NOTE | 2016-11-16 14:40 | NUR ---
CENTRAL LINE: RIGHT FEMORAL CENTRAL LINE WAS REMOVED BY CLIVE RANDALL WITHOUT DIFFICULTY.
--- NOTE | 2016-11-16 15:10 | NUR ---
MEDS: TRIED TO GIVE BP MEDS BUT REFUSED TO TAKE IT.
--- NOTE | 2016-11-16 15:10 | NUR ---
AMBULATION: PATIENT AMBULATED AROUND THE HALLWAY WITH WALKER AND WENT OUTSIDE ACCOMPANIED BY SECURITY AND PATIENT WANT TO STAY AND REFUSED TO GO BACK TO ROOM CHARGE NURSE AND NURSE AWARE. SECURITY WAS INSTRUCTED IF HEAD AND NECK SURGEON BY ICR OPHTHALMOLOGY TECHNICIAN IRLANDA TO CALL IN THE NURSES STATION.
--- NOTE | 2016-11-16 15:11 | NUR ---
DISCHARGE PLANNING [facility] and Care contact Lissy Peters [phone], Board and Care will arrange transport for patient discharge and have notified nursing staff transport time.
--- NOTE | 2016-11-16 15:21 | NUR ---
PLACE: [facility] ( [facility]ICE) SAID THAT PATIENT SHOULD BE CHANGE LEAD AT 16-1700 AND [facility] WAS INFORMED THAT DISPOSAL PLANT OPERATOR IRLANDA CALLED AND WILL CHANGE LEAD PATIENT BEFORE 1700.
--- NOTE | 2016-11-16 16:55 | NUR ---
DC: DISCHARGED HOME AWAKE AND ALERT AND ORIENTED X 4 TO [facility] BY BUS WITH THE MECHANIC MARINE ENGINE JOSE E ( PHONE # [phone]) AND ALL BELONGING SENT.
[2016-11-16 17:21] VITALS: BP 130/94; PULSE 60; RESP 18; TEMP 97.4; O2SAT 95
--- NOTE | 2016-11-20 11:20 | NUR ---
Discharge Follow Up Phone Calls: Compliance Review Officer called and left voice mails for pt's Board and Four [employer] Agent, Lissy Peters ([phone]), on 11/18/16, 11/19/16, and 11/20/16. Compliance Review Officer information was provided and pt's Board and Four H Agent was encouraged to call back with any needs or concerns. Compliance Review Officer will continue to remain available for pt to call back, but no further follow up phone calls will be made at this time.
== END 2016-11-16 04:30 | disposition home or self-care (01) | DRG 53 ==
LOC: SED 11:43 → STU 13:01
PROVIDERS: ADMIT General Practice; ATTEND General Practice
PROC: 5A1D60Z (ICD-10-PCS; principal; 2016-11-14)
DX: G40.409 Other generalized epilepsy and epileptic syndromes, not intractable, without status epilepticus (principal); G93.41 Metabolic encephalopathy; I13.2 Hypertensive heart and chronic kidney disease with heart failure and with stage 5 chronic kidney disease, or end stage renal disease; N18.6 End stage renal disease; E11.22 Type 2 diabetes mellitus with diabetic chronic kidney disease; I50.9 Heart failure, unspecified; E11.40 Type 2 diabetes mellitus with diabetic neuropathy, unspecified; E66.01 Morbid (severe) obesity due to excess calories; E78.5 Hyperlipidemia, unspecified; F79 Unspecified intellectual disabilities; G47.33 Obstructive sleep apnea (adult) (pediatric); K21.9 Gastro-esophageal reflux disease without esophagitis; Z96.653 Presence of artificial knee joint, bilateral; D63.8 Anemia in other chronic diseases classified elsewhere; I87.8 Other specified disorders of veins; H40.9 Unspecified glaucoma; M10.9 Gout, unspecified; Z99.2 Dependence on renal dialysis; Z86.718 Personal history of other venous thrombosis and embolism; Z91.19 Patient's noncompliance with other medical treatment and regimen; Z88.8 Allergy status to other drugs, medicaments and biological substances; Z86.73 Personal history of transient ischemic attack (TIA), and cerebral infarction without residual deficits; Z68.41 Body mass index [BMI] 40.0-44.9, adult
CPT/HCPCS: 36415; 70450-TC; 71010; 74000-TC; 80048; 80053; 80307; 81000-TC; 82140-TC; 82962; 83605; 83735-TC; 83880; 84100-TC; 84439; 84484; 85025; 85610-TC; 87040-TC; 87081; 87086; 87186-TC; 90935; 90937; 93005; 95816; C1751; G0482; J1815; J2060; J7030